=== PATIENT | female | born 1940 | race Caucasian/White ===

== ENCOUNTER 2017-03-06 10:15 | Emergency (ER) | payer MEDICARE ==
[~2017-03-06] VITALS: Ht 167.6 cm; Wt 81.6 kg
[~2017-03-06 10:15] MED LIST: ACET325T53 PO; ACLI400A2 IH; ALBU8.5H8 IH; AMOX-430 PO; DIAZ5TAB PO; DILT60TA35 PO; DOCU100T2 PO; ESCI10TA PO; FLUT1DIS27 IH; FOLI1TAB16 PO; FURO-152 PO; GABA-534 PO; METF-495 PO; METH4TAB3 PO; MONT10TA22 PO; PANT40TA2 PO; QUET400T PO
[2017-03-06] MEDS ORDERED: POLY17PO4 PO (11:14)
[2017-03-06] MEDS ORDERED: TRIA15CR2 TP (11:14)
[2017-03-06] MEDS ORDERED: CLON1TAB4 PO (11:14)
[2017-03-06] MEDS ORDERED: GUAI240S8 PO (11:14)
[2017-03-06] MEDS ORDERED: TRAZ-144 PO (11:14)
[2017-03-06] MEDS ORDERED: MULT-67 PO (11:14)
[2017-03-06] MEDS ORDERED: CHOL200074 PO (11:14)
--- NOTE | 2017-03-06 12:30 | NUR ---
Pt resting in [facility] with no acute s/s of distress noted, disposition pending.
--- NOTE | 2017-03-06 13:30 | NUR ---
Pt ambulatory to restroom without complications, pt is anxious to go back to assisted living facility, notified.
--- NOTE | 2017-03-06 13:55 | NUR ---
Called pt's assisted living facility ( [facility] [phone] ) and gave telephone report to El. El stated their transport will pick the pt up from ER.
--- NOTE | 2017-03-06 14:05 | NUR ---
Patient discharged to home in stable conditon. Written and verbal after care instructions given. Patient verbalizes understanding of instructions. Pt was picked up by transport from assisted living facility.
== END 2017-03-06 14:09 | disposition home or self-care (01) ==
LOC: ER 10:15
DX: S70.01XA Contusion of right hip, initial encounter (principal); K21.9 Gastro-esophageal reflux disease without esophagitis; J44.9 Chronic obstructive pulmonary disease, unspecified; W06.XXXA Fall from bed, initial encounter; Y93.89 Activity, other specified; Y92.9 Unspecified place or not applicable; Y99.9 Unspecified external cause status
CPT/HCPCS: 73502; A4663

== ENCOUNTER 2017-03-23 10:52 | Emergency (ER) | payer MEDICARE ==
[~2017-03-23] VITALS: Ht 165.1 cm; Wt 86.2 kg
[~2017-03-23 10:52] MED LIST changes: -AMOX-430 PO; +CHOL200074 PO; +CLON1TAB4 PO; -FURO-152 PO; +GUAI240S8 PO; -METH4TAB3 PO; -MONT10TA22 PO; +MULT-67 PO; -PANT40TA2 PO; +POLY17PO4 PO; +TRAZ-144 PO; +TRIA15CR2 TP
--- NOTE | 2017-03-23 11:02 | NUR ---
Pt BIB daughter, reports that she brought pt from SNF, pt had 2 falls today, increasing confusion over 1 week. Pt A&Ox3/4 denies CP, SOB, dizziness, n/v, no complaints, no distress noted.
[2017-03-23] MEDS ORDERED: IBUP-1953 PO (11:49)
[2017-03-23] MEDS ORDERED: FLUT1DIS27 INH (11:49)
[2017-03-23] MEDS ORDERED: ACET650T12 PO (11:49)
[2017-03-23] MEDS ORDERED: ACLI400A2 IH (11:49)
[2017-03-23 12:55] LABS: BASOPHILS % (AUTO) 0.4 % (0.0-2.0); EOSINOPHILS # (AUTO) 0.3 K/uL (0.0-0.7); HEMOGLOBIN 13.5 G/DL (12.0-16.0); LYMPHOCYTES # (AUTO) 1.8 K/UL (0.8-4.8); LYMPHOCYTES % (AUTO) 16.5 % (20.5-51.5); MEAN CORPUSCULAR HEMOGLOBIN 30.5 UUG (27.0-31.0); MEAN CORPUSCULAR HGB CONC 32 g/dL (32.0-37.0); MEAN CORPUSCULAR VOLUME 94.9 FL (81.0-99.0); MONOCYTES # (AUTO) 0.5 K/UL (0.1-1.30); MONOCYTES % (AUTO) 4.6 % (0.0-11.0); NEUTROPHILS # (AUTO) 8.3 K/UL (1.8-8.9); NEUTROPHILS % (AUTO) 75.5 % (38.5-71.5); PLATELET COUNT (AUTO) 320 K/UL (150-450); RED BLOOD CELL COUNT(AUTO) 4.43 MIL/UL (4.2-5.4); WHITE BLOOD COUNT (AUTO) 10.9 K/UL (4.0-11.2)
[2017-03-23 12:58] LABS: *BILIRUBIN,URIN NEGATIVE (NEGATIVE); *BLOOD, URINE NEGATIVE (NEGATIVE); *CLARITY,URINE CLEAR (CLEAR); *COLOR,URINE YELLOW (YELLOW); *KETONES,URINE NEGATIVE (NEGATIVE); *PROTEIN,URINE NEGATIVE (NEGATIVE); *UROBILINOGEN,URINE 0.2 E.U./dl (NORMAL); LEUKOCYTE ESTERASE ,URINE 2+ (NEGATIVE); NITRITE, URINE POSITIVE (NEGATIVE); UGLUCOSE NEGATIVE (NEGATIVE)
[2017-03-23 13:00] LABS: CARBON DIOXIDE 24 mmol/L (21-32); CHLORIDE 102 mmol/L (98-107); CREATININE 1.1 mg/dL (0.6-1.3); GLUCOSE 85 mg/dL (74-106); POTASSIUM 4.7 mmol/L (3.5-5.1); UREA NITROGEN, BLOOD 22 mg/dL (7-18)
[2017-03-23 13:06] LABS: BACTERIA,URINE FEW /HPF (NONE SEEN); RBC,URINE 0-3 /HPF (0-3)
[2017-03-23 13:07] LABS: SQUAMOUS EPITHELIAL CELL,UR FEW /HPF (NONE SEEN)
[2017-03-23] MEDS ORDERED: NITROFURANTOIN/NITROFURAN MAC 100 MG CAPSULE PO ONE (13:30)
[2017-03-23] MEDS ORDERED: NITROFURANTOIN/NITROFURAN MAC 100 MG CAPSULE ONE (13:35)
--- NOTE | 2017-03-23 13:40 | NUR ---
Gave pt's daughter RX and d/c instructions, verbalized understanding.
[2017-04-09] MEDS ORDERED: TRIA15CR2 TP (12:26)
[2017-04-12] MEDS ORDERED: CLON0.5T4 PO (15:39)
[2017-04-12] MEDS ORDERED: METF500T4 PO (15:39)
[2017-04-12] MEDS ORDERED: DILT120C62 PO (15:39)
[2017-04-12] MEDS ORDERED: FAMO20TA8 PO (15:39)
[2017-04-12] MEDS ORDERED: BISA10SU12 RC (15:39)
[2017-04-12] MEDS ORDERED: ACET-2154 PO (15:39)
[2017-04-12] MEDS ORDERED: CLON1PAT TD (15:39)
[2017-04-12] MEDS ORDERED: ATOR10TA PO (15:39)
[2017-04-12] MEDS ORDERED: ALBU1.25 NEB (15:39)
== END 2017-03-23 13:45 | disposition home or self-care (01) ==
LOC: ER 10:52
DX: N39.0 Urinary tract infection, site not specified (principal); J44.9 Chronic obstructive pulmonary disease, unspecified; K21.9 Gastro-esophageal reflux disease without esophagitis; Z88.6 Allergy status to analgesic agent; R55 Syncope and collapse; G31.89 Other specified degenerative diseases of nervous system
CPT/HCPCS: 36415; 70450; 85025; 87086; 93005; A4663

== ENCOUNTER 2017-04-08 09:30 | Emergency (ER) | payer MEDICARE ==
[~2017-04-08] VITALS: Ht 172.7 cm; Wt 78.0 kg
[~2017-04-08 09:30] MED LIST changes: +ACET650T12 PO; -CHOL200074 PO; -FLUT1DIS27 IH; +FLUT1DIS27 INH; +IBUP-1953 PO
[2017-04-08] MEDS ORDERED: IV NORMAL SALINE 1000 ML BAG IV ONE (10:00)
[2017-04-08] MEDS ORDERED: CHOL10002 PO (10:01)
[2017-04-08] MEDS ORDERED: ACET325S18 PO (10:01)
[2017-04-08 10:09] LABS: BASOPHILS % (AUTO) 0.6 % (0.0-2.0); EOSINOPHILS # (AUTO) 0.2 K/uL (0.0-0.7); EOSINOPHILS % (AUTO) 2.1 % (0.0-7.0); HEMATOCRIT 38.7 % (37-47); HEMOGLOBIN 12.6 G/DL (12.0-16.0); LYMPHOCYTES # (AUTO) 1.9 K/UL (0.8-4.8); MEAN CORPUSCULAR HGB CONC 33 g/dL (32.0-37.0); MEAN CORPUSCULAR VOLUME 95.5 FL (81.0-99.0); MONOCYTES # (AUTO) 0.5 K/UL (0.1-1.30); MONOCYTES % (AUTO) 6.8 % (0.0-11.0); NEUTROPHILS % (AUTO) 65.5 % (38.5-71.5); PLATELET COUNT (AUTO) 340 K/UL (150-450); RED BLOOD CELL COUNT(AUTO) 4.05 MIL/UL (4.2-5.4); WHITE BLOOD COUNT (AUTO) 7.6 K/UL (4.0-11.2)
[2017-04-08 10:20] LABS: CARBON DIOXIDE 28 mmol/L (21-32); CHLORIDE 101 mmol/L (98-107); CREATININE 0.7 mg/dL (0.6-1.3); GLUCOSE 94 mg/dL (74-106); POTASSIUM 4.1 mmol/L (3.5-5.1); UREA NITROGEN, BLOOD 19 mg/dL (7-18)
[2017-04-08 10:26] LABS: ALANINE AMINOTRANSFERASE 18 U/L (14-59); ALKALINE PHOSPHATASE 120 U/L (50-136); ASPARTATE AMINOTRANSFERASE 11 U/L (15-37); BILIRUBIN,DIRECT 0.1 mg/dL (0.0-0.2); BILIRUBIN,TOTAL 0.4 mg/dL (0.2-1.0); LIPASE 101 U/L (73-393); TOTAL PROTEIN, SERUM 7.7 g/dL (6.4-8.2)
[2017-04-08 11:11] LABS: *BILIRUBIN,URIN NEGATIVE (NEGATIVE); *BLOOD, URINE NEGATIVE (NEGATIVE); *CLARITY,URINE SLIGHTLY CLOUDY (CLEAR); *COLOR,URINE YELLOW (YELLOW); *KETONES,URINE TRACE (NEGATIVE); *PROTEIN,URINE NEGATIVE (NEGATIVE); *UROBILINOGEN,URINE 0.2 E.U./dl (NORMAL); LEUKOCYTE ESTERASE ,URINE TRACE (NEGATIVE); NITRITE, URINE NEGATIVE (NEGATIVE); PH,URINE 7.5 (5.0-8.0); UGLUCOSE NEGATIVE (NEGATIVE)
[2017-04-08 11:34] LABS: BACTERIA,URINE FEW /HPF (NONE SEEN); RBC,URINE 0-3 /HPF (0-3); SQUAMOUS EPITHELIAL CELL,UR MODERATE /HPF (NONE SEEN)
--- NOTE | 2017-04-08 11:35 | NUR ---
called alvaro perrin for er to talk to the nurse caring for the pt.
--- NOTE | 2017-04-08 12:27 | NUR ---
anne marie whipple at [facility] for psycheval.
--- NOTE | 2017-04-08 13:50 | NUR ---
pt medically cleared. no room available per mhu at thispoint, supervisor water treatment plant notified
--- NOTE | 2017-04-08 14:20 | NUR ---
hospital sandwich provided. pt eating with good appetite.
--- NOTE | 2017-04-08 15:22 | NUR ---
pt rachele, helped her walking in the room.
--- NOTE | 2017-04-08 15:45 | NUR ---
sitter at bedside.
--- NOTE | 2017-04-08 17:20 | NUR ---
provided pt with hospital tray. pt eating with good appetite.
--- NOTE | 2017-04-08 18:28 | NUR ---
pt transfered to floor in stable condition
[2017-04-08 18:39] VITALS: BP 161/86
--- NOTE | 2017-04-08 18:47 | NUR ---
PT IN ROOM WITH 1:! SITTER, VS STABLE. PT ALERT TO SELF, WANTS TO LEAVE TO GO HOME. ALL SAFETY MEASURES ATTENDED TO. WILL ENDORSE TO SAFETY COORDINATOR
--- NOTE | 2017-04-08 19:40 | NUR ---
PT RECEIVED IN [facility] CHAIR, AWAKE. 1:1 SITTER AT BEDSIDE FOR SAFETY. A/OX1. V/S STABLE. IN NO ACUTE DISTRESS. NO C/O PAIN AT THIS TIME. SAFETY MEASURES IMPLEMENTED. CALL LIGHT WITHIN REACH.
[2017-04-08] MEDS ORDERED: MAG HYDROX/AL HYDROX/SIMETH 30 ML LIQUID UDC PO PRN (20:30)
[2017-04-08] MEDS ORDERED: ACETAMINOPHEN 325 MG TABLET PO PRN (20:30)
[2017-04-08] MEDS ORDERED: LORAZEPAM 0.5 MG TABLET PO PRN (20:30)
[2017-04-08] MEDS ORDERED: MAGNESIUM HYDROXIDE 30 ML LIQUID UDC PO PRN (20:30)
[2017-04-08] MEDS ORDERED: TEMAZEPAM 7.5 MG CAPSULE PO PRN (20:30)
[2017-04-08 20:33] VITALS: BP 151/82
[2017-04-09 02:15] VITALS: BP 157/102
[2017-04-09] MEDS: ONDANSETRON 4 MG/2 ML VIAL IV PRN ×2 (02:48→11:24)
[2017-04-09] MEDS ORDERED: ONDANSETRON 4 MG/2 ML VIAL ONE ×2 (03:01→06:12)
--- NOTE | 2017-04-09 05:55 | NUR ---
PT HAS X2 EPISODES OF PROJECTILE VOMITING. NOTIFIED MAKE READY WORKER EDNA. WILL ADMIN ZOFRAN 8MG ORDERED. ABD KUB ORDERED. WILL CONT TO MONITOR.
[2017-04-09] MEDS ORDERED: ONDANSETRON INJ 8 MG in IV NORMAL SALINE 50 ML IV ONE (06:00)
--- NOTE | 2017-04-09 06:30 | NUR ---
END OF SHIFT NOTES. PT SLEPT FOR 4.5 HOURS THRU THE NIGHT. PT IN STABLE CONDITION. EMESIS CEASED. KUB OF ABDOMEN COMPLETE. IV REMAINS INTACT/PATENT. SITTER REMAINS AT BEDSIDE FOR SAFETY. ALL NEEDS ATTENDED. CALL LIGHT WITHIN REACH.
--- NOTE | 2017-04-09 08:00 | NUR ---
Awaiting KUB results. Called radiology for f/u result or any preliminary. KEpt pt NPO until result of KUB. Pt has Flat affect. 1:1 sitter at bedside for safety. Facial redness noted with swollen red bumps on her face. No red bumps noted on body. Noted scabs on left leg. Will notify Medical doctor for any further orders. Aspiration precaution implemented. Call light is within reach.
[2017-04-09 08:11] VITALS: BP 142/76
--- NOTE | 2017-04-09 10:30 | NUR ---
Spoke with Dr oliver re: pt's red bumps on face and pt had x 1 greenish liquid vomited with abdominal distention. Zofran given as ordered for prn nausea vomiting. Abd hyperactive. KUB results shows constipation will attempt to give suppository in addition to new orders for pt's hives on face. Call light is within reach.
[2017-04-09] MEDS ORDERED: HYDROCORTISONE SOD SUCCINATE 100 MG/2 ML VIAL IV SCH (11:00)
[2017-04-09] MEDS ORDERED: DILTIAZEM HCL 60 MG TABLET PO ONE (11:11)
[2017-04-09 11:15] VITALS: BP 140/76
[2017-04-09] MEDS ORDERED: MIRALAX 17 GM POWD.PACK PO PRN (11:15)
[2017-04-09] MEDS ORDERED: GUAIFENESIN PO SCH (11:15)
[2017-04-09] MEDS ORDERED: DEXTROMETHORPHAN PO SCH (11:15)
[2017-04-09] MEDS ORDERED: FLUTICASONE/SALMETEROL 100/50 1 INH DISK.W.DEV INH SCH (11:15)
[2017-04-09] MEDS ORDERED: DEXTROSE 50% 50 ML DISP.SYRIN IV PRN (11:15)
[2017-04-09] MEDS ORDERED: TRIAMCINOLONE ACET 0.5% CREAM 15 GM TUBE TP PRN ×2 (11:15→12:30)
[2017-04-09] MEDS: diphenhydrAMINE 50 MG/1 ML VIAL IV PRN ×2 (11:24→20:36)
[2017-04-09] MEDS: methylPREDNISolone SOD SUCC 40 MG/ML VIAL IV SCH ×2 (11:24→20:35)
[2017-04-09 12:07] LABS: BASOPHILS # (AUTO) 0.1 K/uL (0.0-8.0); BASOPHILS % (AUTO) 0.4 % (0.0-2.0); HEMATOCRIT 42.2 % (37-47); HEMOGLOBIN 13.7 G/DL (12.0-16.0); LYMPHOCYTES # (AUTO) 0.7 K/UL (0.8-4.8); LYMPHOCYTES % (AUTO) 4.8 % (20.5-51.5); MEAN CORPUSCULAR HEMOGLOBIN 31.4 UUG (27.0-31.0); MEAN CORPUSCULAR HGB CONC 33 g/dL (32.0-37.0); MEAN CORPUSCULAR VOLUME 96.3 FL (81.0-99.0); MONOCYTES # (AUTO) 0.4 K/UL (0.1-1.30); MONOCYTES % (AUTO) 2.7 % (0.0-11.0); NEUTROPHILS # (AUTO) 14.2 K/UL (1.8-8.9); NEUTROPHILS % (AUTO) 92.1 % (38.5-71.5); PLATELET COUNT (AUTO) 378 K/UL (150-450); RED BLOOD CELL COUNT(AUTO) 4.38 MIL/UL (4.2-5.4); WHITE BLOOD COUNT (AUTO) 15.4 K/UL (4.0-11.2)
[2017-04-09 12:11] LABS: ALANINE AMINOTRANSFERASE 19 U/L (14-59); ALKALINE PHOSPHATASE 119 U/L (50-136); ASPARTATE AMINOTRANSFERASE 12 U/L (15-37); BILIRUBIN,TOTAL 0.5 mg/dL (0.2-1.0); CARBON DIOXIDE 28 mmol/L (21-32); CHLORIDE 98 mmol/L (98-107); CREATININE 0.8 mg/dL (0.6-1.3); GLUCOSE 132 mg/dL (74-106); MAGNESIUM 1.6 mg/dL (1.8-2.4); PHOSPHOROUS 3.4 mg/dL (2.5-4.9); POTASSIUM 3.9 mmol/L (3.5-5.1); TOTAL PROTEIN, SERUM 7.8 g/dL (6.4-8.2); UREA NITROGEN, BLOOD 22 mg/dL (7-18)
[2017-04-09] MEDS ORDERED: DILTIAZEM HCL 60 MG TABLET PO SCH (12:21)
[2017-04-09] MEDS ORDERED: TRIA15CR2 TP (12:26)
[2017-04-09] MEDS ORDERED: GUAIFENESIN/DEXTROMETHORPHAN 5 ML UDC PO PRN (12:30)
[2017-04-09] MEDS: BLOOD SUGAR DIAGNOSTIC 1 EACH STRIP VI SCH ×3 (12:33→20:39)
[2017-04-09] MEDS: METFORMIN HCL 500 MG TABLET PO SCH ×2 (12:37→17:25)
[2017-04-09] MEDS: INSULIN REGULAR, HUMAN 300 UNIT/3 ML VIAL SQ PRN ×3 (12:39→20:41)
[2017-04-09] MEDS: FAMOTIDINE. 20 MG/2 ML VIAL IV SCH ×2 (12:40→20:35)
[2017-04-09] MEDS ORDERED: TRIAMCINOLONE ACET 0.1% CREAM 15 GM TUBE TOP PRN (12:45)
[2017-04-09] MEDS ORDERED: FLUTICASONE/VILANTEROL 1 EACH BLST.W.DEV INH SCH (13:00)
[2017-04-09] MEDS ORDERED: BISACODYL 10 MG SUPP.RECT RC ONE (14:30)
[2017-04-09 15:32] VITALS: BP 168/94
[2017-04-09] MEDS ORDERED: FLEET ENEMA 133 ML BOTTLE RC PRN (16:45)
[2017-04-09] MEDS ORDERED: Medication Not On Formulary EA (Docusate Sodium 100 MG) PO SCH (17:00)
[2017-04-09] MEDS: GABAPENTIN 300 MG CAPSULE PO SCH ×2 (17:00→18:20)
--- NOTE | 2017-04-09 17:30 | NUR ---
While changing pt's soiled diaper pt had another vomiting episodes. No result from suppository. Dr oliver notified of vomiting and no result from suppository. Ordered NGT to be placed and put on to [facility].
--- NOTE | 2017-04-09 18:00 | NUR ---
NGT inserted marked AT 55marking on ngt. Audible on stomach -checked with another RN. Awaiting placement from radiology.
[2017-04-09 18:34] VITALS: BP 158/91
--- NOTE | 2017-04-09 18:36 | NUR ---
ABHIJEET TAKEN OUT OF PYXSIS BY BLAST FURNACE SUPERVISOR.
--- NOTE | 2017-04-09 18:45 | NUR ---
NGT has 300cc out from Low continous suction. Pt states that she feels better. Draining yellowish brown fluid. Call light is within reach. Charge nurse spoke with Dr Peter psychiatrist OK to transfer to MEdical surgical floor.
[2017-04-09 19:00] VITALS: BP 149/96
--- NOTE | 2017-04-09 19:40 | NUR ---
PT RECEIVED IN BED, AWAKE. A/OX1. 1:1 SITTER AT BEDSIDE FOR SAFETY. V/S STABLE. IN NO ACUTE DISTRESS. NO S/S OF PAIN AT THIS TIME. IV INTACT AND PATENT. PT ON CONT NG TUBE SUCTION WITH 300 CC OUT. NO EPISODES OF EMESIS AT THIS TIME. UNABLE TO TRANSFER PT TO MED SURG. MHU STATES THAT D/C PROCESS SHOULD BE ENDORSED TO DAYSHIFT NURSE. SAFETY MEASURES IMPLEMENTED. CALL LIGHT WITHIN REACH.
[2017-04-09] MEDS ORDERED: DOCUSATE SODIUM 100 MG CAPSULE PO SCH (21:00)
[2017-04-09] MEDS ORDERED: QUETIAPINE FUMARATE 25 MG TABLET PO SCH (21:00)
[2017-04-09] MEDS ORDERED: FAMOTIDINE. 20 MG/2 ML VIAL IV SCH (21:00)
[2017-04-09] MEDS ORDERED: MAGN400O6 PO (21:39)
[2017-04-09] MEDS ORDERED: FAMO20VI10 IV (21:39)
[2017-04-09] MEDS ORDERED: NA P133E RC (21:39)
[2017-04-09] MEDS ORDERED: TEMA7.5C2 PO (21:39)
[2017-04-09] MEDS ORDERED: METH40VI37 IV (21:39)
[2017-04-09] MEDS ORDERED: ONDA4VIA30 IV (21:39)
[2017-04-09] MEDS ORDERED: FLUT1BLS IH (21:39)
[2017-04-09] MEDS ORDERED: DIPH50DI IV (21:39)
[2017-04-09] MEDS ORDERED: CLON0.5T PO (21:39)
[2017-04-09] MEDS ORDERED: QUET50TA PO (21:39)
[2017-04-09] MEDS ORDERED: DEXT50VI3 IV (21:39)
[2017-04-09] MEDS ORDERED: ESCI10TA PO (21:39)
[2017-04-09] MEDS ORDERED: BLOO-140 IN (21:39)
[2017-04-10] MEDS ORDERED: FOLIC ACID 1 MG TABLET PO SCH (09:00)
[2017-04-10] MEDS ORDERED: Medication Not On Formulary EA (Multivitamins 1 EACH) PO SCH (09:00)
[2017-04-10] MEDS ORDERED: CLONAZEPAM 0.5 MG TABLET PO SCH (09:00)
[2017-04-10] MEDS ORDERED: MULTIVITAMINS,THERAPEUTIC TABLET PO SCH (09:00)
[2017-04-10] MEDS ORDERED: ESCITALOPRAM OXALATE 10 MG TABLET PO SCH (09:00)
[2017-04-10] MEDS ORDERED: CHOLECALCIFEROL 1,000 UNIT TABLET PO SCH (09:00)
[2017-04-12] MEDS ORDERED: DILT120C62 PO (15:39)
[2017-04-12] MEDS ORDERED: CLON0.5T4 PO (15:39)
[2017-04-12] MEDS ORDERED: CLON1PAT TD (15:39)
[2017-04-12] MEDS ORDERED: ACET-2154 PO (15:39)
[2017-04-12] MEDS ORDERED: ALBU1.25 NEB (15:39)
[2017-04-12] MEDS ORDERED: METF500T4 PO (15:39)
[2017-04-12] MEDS ORDERED: BISA10SU12 RC (15:39)
[2017-04-12] MEDS ORDERED: ATOR10TA PO (15:39)
[2017-04-12] MEDS ORDERED: FAMO20TA8 PO (15:39)
== END 2017-04-08 18:32 | disposition other institution (70) ==
LOC: ER 09:30 → GPS 17:28 → UNDOADMIN 17:28 → GPSOV 18:11 → UNDOADMIN 18:11 → UNDODISIN 04-09 21:09
DX: Z02.79 Encounter for issue of other medical certificate (principal); F03.90 Unspecified dementia, unspecified severity, without behavioral disturbance, psychotic disturbance, mood disturbance, and anxiety; J44.9 Chronic obstructive pulmonary disease, unspecified; K21.9 Gastro-esophageal reflux disease without esophagitis; F29 Unspecified psychosis not due to a substance or known physiological condition; I48.91 Unspecified atrial fibrillation; Z88.8 Allergy status to other drugs, medicaments and biological substances
CPT/HCPCS: 36415; 70030-TC; 70450; 71010; 71250; 74000; 83690; 83735; 84100; 85025; 85730; 93005; A4663; C1758; J1200; J1815; J2405; J2920; J3490; J7030

== ENCOUNTER 2017-04-09 21:18 | Inpatient (IN) | payer MEDICARE ==
[~2017-04-09] VITALS: Ht 172.7 cm; Wt 78.0 kg
--- NOTE | 2017-04-09 21:15 | NUR ---
PT IS SINUS TACHY AT 115 ON THE TELE MONITOR.
--- NOTE | 2017-04-09 21:15 | NUR ---
PT TRANSFERRED FROM [facility] TO TELEMETRY WITH UNSTABLE CONDITION. PT A/OX1. FLAT AFFECT. VS STABLE. NO S/S OF PAIN. IV INTACT/PATENT. IVF INFUSING. NG TUBE ON CONTINUOUS SUCTION, 400CC OUT, DARK BROWN/GREEN AND THICK IN CONSISTENCY. HOB ELEVATED. 1:1 SITTER AT BEDSIDE FOR SAFETY. SAFETY MEASURES IMPLEMENTED. CALL LIGHT WITHIN REACH.
[~2017-04-09 21:18] MED LIST changes: +ACET325S18 PO; -ACET325T53 PO; -ACET650T12 PO; +CHOL10002 PO
[2017-04-09] MEDS ORDERED: VANCOMYCIN IV 1 G in PREMIXED 0 EACH IV ONE (21:30)
[2017-04-09] MEDS ORDERED: BLOO-140 IN (21:39)
[2017-04-09] MEDS ORDERED: TEMA7.5C2 PO (21:39)
[2017-04-09] MEDS ORDERED: DEXT50VI3 IV (21:39)
[2017-04-09] MEDS ORDERED: CLON0.5T PO (21:39)
[2017-04-09] MEDS ORDERED: QUET50TA PO (21:39)
[2017-04-09] MEDS ORDERED: FLUT1BLS IH (21:39)
[2017-04-09] MEDS ORDERED: METH40VI37 IV (21:39)
[2017-04-09] MEDS ORDERED: ESCI10TA PO (21:39)
[2017-04-09] MEDS ORDERED: FAMO20VI10 IV (21:39)
[2017-04-09] MEDS ORDERED: MAGN400O6 PO (21:39)
[2017-04-09] MEDS ORDERED: DIPH50DI IV (21:39)
[2017-04-09] MEDS ORDERED: ONDA4VIA30 IV (21:39)
[2017-04-09] MEDS ORDERED: NA P133E RC (21:39)
[2017-04-09] MEDS ORDERED: VANCOMYCIN 1000 MG VIAL ONE (22:02)
[2017-04-09] MEDS ORDERED: PIPERACILLIN SODIUM/TAZO 3.375 GM VIAL ONE (22:03)
[2017-04-09] MEDS ORDERED: LEVALBUTEROL HCL NEB 0.63 MG/3 ML NEBU NEB PRN (22:15)
[2017-04-09] MEDS ORDERED: ONDANSETRON 4 MG/2 ML VIAL IV PRN (22:15)
[2017-04-09] MEDS ORDERED: MORPHINE SULFATE 2 MG/1 ML DISP.SYRIN IV PRN (22:15)
[2017-04-09] MEDS ORDERED: ACETAMINOPHEN 650 MG SUPP.RECT RC PRN (22:15)
[2017-04-09] MEDS ORDERED: DEXTROSE 50% 50 ML DISP.SYRIN IV PRN (22:15)
[2017-04-09] MEDS: PIPERACILLIN/TAZOBACTAM/D5W 3.375 G in PREMIXED 1 EACH IV SCH (22:34)
[2017-04-09] MEDS: BLOOD SUGAR DIAGNOSTIC 1 EACH STRIP VI SCH (23:06)
[2017-04-09] MEDS: INSULIN REGULAR, HUMAN 300 UNIT/3 ML VIAL SQ PRN (23:09)
[2017-04-09] MEDS: IV D5 1/2 NS 1000 ML 1,000 ML IV PRN (23:22)
[2017-04-10] VITALS (8 sets, daily range): BP systolic 126–163; BP diastolic 60–95
--- NOTE | 2017-04-10 00:50 | NUR ---
ADMINISTERED PAIN MEDICATION TO PT. PT UNABLE TO VERBALIZE PAIN SCALE, BUT CONTINUES TO STATE SHE IS PAIN. YELLS "OUCH" AND SCREAMS WITH ALL NURSING CARE. WILL CONT TO MONITOR
[2017-04-10] MEDS ORDERED: MORPHINE SULFATE 4 MG/1 ML DISP.SYRIN ONE (00:56)
--- NOTE | 2017-04-10 03:00 | NUR ---
PT PULLED PU NG TUBE. NEW NG TUBE PLACED. ABDOMINAL XRAY DONE. IN STABLE CONDITION. WILL CONT TO MONITOR
[2017-04-10] MEDS: PIPERACILLIN/TAZOBACTAM/D5W 3.375 G in PREMIXED 1 EACH IV SCH ×3 (05:35→21:03)
[2017-04-10] MEDS: BLOOD SUGAR DIAGNOSTIC 1 EACH STRIP VI SCH ×4 (05:40→23:23)
[2017-04-10] MEDS: INSULIN REGULAR, HUMAN 300 UNIT/3 ML VIAL SQ PRN ×2 (05:43→08:24)
[2017-04-10 05:56] LABS: BASOPHILS # (AUTO) 0.1 K/uL (0.0-8.0); BASOPHILS % (AUTO) 0.6 % (0.0-2.0); HEMATOCRIT 38.5 % (37-47); HEMOGLOBIN 12.9 G/DL (12.0-16.0); LYMPHOCYTES % (AUTO) 9.3 % (20.5-51.5); MEAN CORPUSCULAR HEMOGLOBIN 31.6 UUG (27.0-31.0); MEAN CORPUSCULAR HGB CONC 33 g/dL (32.0-37.0); MEAN CORPUSCULAR VOLUME 94.8 FL (81.0-99.0); MONOCYTES # (AUTO) 0.9 K/UL (0.1-1.30); MONOCYTES % (AUTO) 8.1 % (0.0-11.0); NEUTROPHILS # (AUTO) 8.9 K/UL (1.8-8.9); PLATELET COUNT (AUTO) 369 K/UL (150-450); RED BLOOD CELL COUNT(AUTO) 4.06 MIL/UL (4.2-5.4); WHITE BLOOD COUNT (AUTO) 10.9 K/UL (4.0-11.2)
--- NOTE | 2017-04-10 06:10 | NUR ---
END OF SHIFT NOTES. PT SLEPT INTERMITTENTLY THROUGHOUT SHIFT. 1;1 SITTER AT BEDSIDE FOR SAFETY. IV ABX INFUSED. IVF INFUSING. NG TUBE ON CONTINUOUS SUCTION, 100 CC OUT. MARKED AT 55IN. HOB ELEVATED. CONT TO TO BE NPO. SAFETY MAINTAINED. CALL LIGHT WITHIN REACH.
[2017-04-10 06:19] LABS: THYROID STIMULATING HORMONE 2.874 mIU/mL (0.358-3.740)
[2017-04-10 06:20] LABS: ALANINE AMINOTRANSFERASE 17 U/L (14-59); ALKALINE PHOSPHATASE 111 U/L (50-136); ASPARTATE AMINOTRANSFERASE 11 U/L (15-37); BILIRUBIN,TOTAL 0.4 mg/dL (0.2-1.0); CARBON DIOXIDE 31 mmol/L (21-32); CHLORIDE 104 mmol/L (98-107); CHOLESTEROL 213 mg/dL (<200); CREATININE 0.9 mg/dL (0.6-1.3); GLUCOSE 155 mg/dL (74-106); HDL CHOLESTEROL 92 mg/dL (40-60); LIPASE 67 U/L (73-393); MAGNESIUM 1.5 mg/dL (1.8-2.4); PHOSPHOROUS 3.7 mg/dL (2.5-4.9); POTASSIUM 3.9 mmol/L (3.5-5.1); TOTAL PROTEIN, SERUM 7.5 g/dL (6.4-8.2); TRIGLYCERIDES 59 MG/DL (30-150); UREA NITROGEN, BLOOD 27 mg/dL (7-18)
[2017-04-10] MEDS ORDERED: MORPHINE SULFATE 4 MG/1 ML DISP.SYRIN IV PRN (08:15)
[2017-04-10] MEDS: FAMOTIDINE. 20 MG/2 ML VIAL IV SCH ×2 (08:23→21:03)
--- NOTE | 2017-04-10 08:30 | NUR ---
PT WAS SOB ON BEDSIDE SHIFT ROUNDING, SAT 80-81%. 2L NC APPLIED, NOW SATING 93%. IN NO ACUTE DISTRESS, KUB SHOWED NG TUBE IN STOMACH, AUSCULTATED PLACEMENT, SUCTION ON LOW INTERMITTEN, DENIES PAIN AND NAUSEA, 1:1 SITTER AT BEDSIDE, WILL CONTINUE TO MONITOR.
--- NOTE | 2017-04-10 12:23 | NUR ---
Clinical pharmacy note-Vancomycin dosing per pharmacy Subjective: To start Vancomycin dosing on this patient for suspected aspiration pneumonia with early sepsis. Objective: BUN 27 Scr 0.9 WBC 10.9 Temp 98.1 Ht 5'8" Wt 172 lbs Assessment/Plan: Patient had Vancomycin 1 gram last night at 2310. Will continue Vancomycin 1250mg IV every 21 hrs(first dose tonight at 1700) and draw trough by 4th dose(not ordered yet) for expected trough around 15. Will monitor renal function closely to adjust the dose if needed. Will follow daily.
[2017-04-10] MEDS: MAGNESIUM SULFATE/D5W 100 ML IV SCH ×2 (14:59→16:05)
--- NOTE | 2017-04-10 16:42 | NUR ---
Patient is previously from [facility]. Called facility and patient will be accepted back there. Family states that patient gets $13,000 in [facility]. Jovany Garcia is the patients DPOA. Waiting for son to fax over the necessary paperwork.
[2017-04-10] MEDS ORDERED: BISACODYL 10 MG SUPP.RECT RC PRN (16:45)
--- NOTE | 2017-04-10 16:53 | NUR ---
SUPP GIVEN ORDERED
[2017-04-10] MEDS: VANCOMYCIN IV 1,250 MG in IV DEXTROSE 5% 500 ML IV SCH (17:38)
[2017-04-10] MEDS ORDERED: CLONIDINE-TTS 1 PATCH TD SCH (18:00)
--- NOTE | 2017-04-10 19:40 | NUR ---
PT RECEIVED IN BED, ASLEEP. WAKES WHEN CALLED BY NAME. FLAT AFFECT. A/OX1. 1:1 SITTER AT BEDSIDE FOR SAFETY. V/S STABLE. IN NO ACUTE DISTRESS. PT HAS SOME FACIAL GRIMACING AND GROANING, WITH SLIGHTLY ELEVATED HR 98. WILL ADMIN PAIN MEDICATION ORDERED. IVF INFUSING. NG TUBE ON INTERMITTENT SUCTION. SAFETY MEASURES IMPLEMENTED. CALL LIGHT WITHIN REACH .
[2017-04-10] MEDS: IV D5 1/2 NS 1000 ML 1,000 ML IV PRN (22:42)
[2017-04-11 04:01] VITALS: BP 133/82
[2017-04-11] MEDS: PIPERACILLIN/TAZOBACTAM/D5W 3.375 G in PREMIXED 1 EACH IV SCH ×3 (05:41→21:05)
[2017-04-11] MEDS: BLOOD SUGAR DIAGNOSTIC 1 EACH STRIP VI SCH ×3 (05:46→18:27)
--- NOTE | 2017-04-11 06:50 | NUR ---
END OF SHIFT NOTES. PT SLEPT WELL THROUGHOUT SHIFT. 1:1 SITTER REMAINS AT BEDSIDE FOR SAFETY. IV ABX INFUSED. IVF INFUSING. NG TUBE ON INTERMITTENT SUCTION, 100CC OUT. ALL NEEDS ATTENDED. SAFETY MAINTAINED. CALL LIGHT WITHIN REACH.
[2017-04-11] MEDS: FAMOTIDINE. 20 MG/2 ML VIAL IV SCH ×2 (08:13→21:04)
[2017-04-11 09:32] LABS: ALANINE AMINOTRANSFERASE 15 U/L (14-59); ALKALINE PHOSPHATASE 102 U/L (50-136); ASPARTATE AMINOTRANSFERASE 13 U/L (15-37); BILIRUBIN,TOTAL 0.4 mg/dL (0.2-1.0); CARBON DIOXIDE 30 mmol/L (21-32); CHLORIDE 102 mmol/L (98-107); CREATININE 0.7 mg/dL (0.6-1.3); GLUCOSE 136 mg/dL (74-106); MAGNESIUM 1.9 mg/dL (1.8-2.4); PHOSPHOROUS 2.5 mg/dL (2.5-4.9); POTASSIUM 3.5 mmol/L (3.5-5.1); TOTAL PROTEIN, SERUM 7.2 g/dL (6.4-8.2); UREA NITROGEN, BLOOD 18 mg/dL (7-18)
[2017-04-11 09:39] LABS: BASOPHILS # (AUTO) 0.1 K/uL (0.0-8.0); BASOPHILS % (AUTO) 0.6 % (0.0-2.0); EOSINOPHILS # (AUTO) 0.1 K/uL (0.0-0.7); EOSINOPHILS % (AUTO) 0.7 % (0.0-7.0); HEMATOCRIT 36.4 % (37-47); HEMOGLOBIN 12.8 G/DL (12.0-16.0); LYMPHOCYTES # (AUTO) 1.2 K/UL (0.8-4.8); LYMPHOCYTES % (AUTO) 9.9 % (20.5-51.5); MEAN CORPUSCULAR HEMOGLOBIN 34.3 UUG (27.0-31.0); MEAN CORPUSCULAR HGB CONC 35 g/dL (32.0-37.0); MEAN CORPUSCULAR VOLUME 97.4 FL (81.0-99.0); MONOCYTES # (AUTO) 0.9 K/UL (0.1-1.30); MONOCYTES % (AUTO) 7.9 % (0.0-11.0); NEUTROPHILS # (AUTO) 9.6 K/UL (1.8-8.9); NEUTROPHILS % (AUTO) 80.9 % (38.5-71.5); PLATELET COUNT (AUTO) 322 K/UL (150-450); RED BLOOD CELL COUNT(AUTO) 3.73 MIL/UL (4.2-5.4); WHITE BLOOD COUNT (AUTO) 11.9 K/UL (4.0-11.2)
--- NOTE | 2017-04-11 11:07 | NUR ---
Clinical pharmacy note-Vancomycin dosing per pharmacy Subjective: To continue Vancomycin dosing on this patient for suspected aspiration pneumonia with early sepsis. Objective: BUN 27 (04/10) Scr 0.9 (04/10) WBC 10.9 (04/10) Temp 97.6 Ht 5'8" Wt 172 lbs Assessment/Plan: Will continue Vancomycin 1250mg IV every 21 hrs, second dose due today at 1400, and draw trough by 4th dose(not ordered yet) for expected trough around 15. Will monitor renal function closely to adjust the dose if needed. Will follow daily.
[2017-04-11 11:41] VITALS: BP 161/82
--- NOTE | 2017-04-11 12:14 | NUR ---
manually disimpacted as ordered, no stool in rectum. ng tube removed as ordered, pt tolerated well. pt on RA sat 91% started on clear liquids, will cont to monitor closely
[2017-04-11] MEDS ORDERED: ALBUTEROL SULFATE 1.25 MG/3 ML NEBU NEB PRN (14:45)
[2017-04-11 15:14] VITALS: BP 158/88
[2017-04-11] MEDS ORDERED: HYDROMORPHONE 1 MG/1 ML DISP.SYRIN IV PRN (15:15)
[2017-04-11] MEDS: VANCOMYCIN IV 1,250 MG in IV DEXTROSE 5% 500 ML IV SCH (15:20)
[2017-04-11] MEDS: INSULIN REGULAR, HUMAN 300 UNIT/3 ML VIAL SQ PRN (18:30)
--- NOTE | 2017-04-11 18:45 | NUR ---
PT PULLED OUT IV, ERIN CHARGE NURSE STARTED NEW IV IN LFA G22. PT TOLERATING SOFT DIET, NO VOMITING OR NAUSEA PRESENT. 1:1 SITTER MAINTAINED THROUGHOUT SHIFT, ALL SAFETY AND COMFORT MEASURES MAINTAINED, CALL LIGHT IN REACH.
[2017-04-11] MEDS ORDERED: CLONAZEPAM 0.5 MG TABLET PO PRN (20:30)
[2017-04-11] MEDS ORDERED: ATORVASTATIN 10 MG TABLET PO SCH (21:00)
[2017-04-11] MEDS: QUETIAPINE FUMARATE 25 MG TABLET PO SCH (21:04)
[2017-04-11] MEDS: IV D5 1/2 NS 1000 ML 1,000 ML IV PRN (21:54)
--- NOTE | 2017-04-11 23:18 | NUR ---
PATIENT AWAKE AND ALERT BUT CONFUSE NOT SAYING ANY WORD, FLAT AFFECT BUT NON COMBATIVE WITH AGITATION AT TIMES. SEEN BY DR DUTCH DAHL WITH ORDERS. PSYCH MEDS RESTARTED. PLACED ON 5249 14- DAY HOLD VALID UNTIL 04/25/17 FOR GRAVE DISABILITY, FAXED COPY TO MHU. 1:1 SITTER AT BEDSIDE. OTHERWISE VSS.
[2017-04-12] MEDS: BLOOD SUGAR DIAGNOSTIC 1 EACH STRIP VI SCH ×5 (01:36→16:18)
[2017-04-12] MEDS: PIPERACILLIN/TAZOBACTAM/D5W 3.375 G in PREMIXED 1 EACH IV SCH ×2 (05:36→14:21)
--- NOTE | 2017-04-12 06:30 | NUR ---
SLEPT GOOD THRU THE NIGHT. NO RESPIRATORY DISTRESS NOTED. INCONTINENT CARE RENDERED. KEPT SAFE WITH 1:1 SITTER FOR SAFETY AND GRAVE DISABILITY.
[2017-04-12] MEDS ORDERED: INSULIN REGULAR, HUMAN 300 UNIT/3 ML VIAL SQ PRN (06:45)
[2017-04-12] MEDS ORDERED: DEXTROSE 50% 50 ML DISP.SYRIN IV PRN (06:45)
[2017-04-12 07:42] LABS: CARBON DIOXIDE 28 mmol/L (21-32); CHLORIDE 103 mmol/L (98-107); CREATININE 0.7 mg/dL (0.6-1.3); GLUCOSE 114 mg/dL (74-106); MAGNESIUM 1.9 mg/dL (1.8-2.4); PHOSPHOROUS 2.3 mg/dL (2.5-4.9); POTASSIUM 3.2 mmol/L (3.5-5.1); UREA NITROGEN, BLOOD 13 mg/dL (7-18)
[2017-04-12 07:50] LABS: BASOPHILS % (AUTO) 0.2 % (0.0-2.0); EOSINOPHILS # (AUTO) 0.2 K/uL (0.0-0.7); EOSINOPHILS % (AUTO) 1.8 % (0.0-7.0); HEMATOCRIT 36.4 % (37-47); HEMOGLOBIN 12.8 G/DL (12.0-16.0); LYMPHOCYTES # (AUTO) 1.7 K/UL (0.8-4.8); LYMPHOCYTES % (AUTO) 19.4 % (20.5-51.5); MEAN CORPUSCULAR HEMOGLOBIN 34.4 UUG (27.0-31.0); MEAN CORPUSCULAR HGB CONC 35 g/dL (32.0-37.0); MEAN CORPUSCULAR VOLUME 98.2 FL (81.0-99.0); MONOCYTES # (AUTO) 0.8 K/UL (0.1-1.30); MONOCYTES % (AUTO) 8.9 % (0.0-11.0); NEUTROPHILS # (AUTO) 6.3 K/UL (1.8-8.9); NEUTROPHILS % (AUTO) 69.7 % (38.5-71.5); PLATELET COUNT (AUTO) 317 K/UL (150-450); RED BLOOD CELL COUNT(AUTO) 3.71 MIL/UL (4.2-5.4)
[2017-04-12] MEDS: GABAPENTIN 300 MG CAPSULE PO SCH ×2 (08:02→16:18)
[2017-04-12] MEDS: QUETIAPINE FUMARATE 25 MG TABLET PO SCH (08:02)
[2017-04-12] MEDS: METFORMIN HCL 500 MG TABLET PO SCH ×2 (08:02→17:04)
[2017-04-12 08:16] VITALS: BP 151/86
--- NOTE | 2017-04-12 08:49 | NUR ---
CALLED PREVIOUS LIVING FACILITY TO CHECK STATUS OF PNA VACCINE. UNKNOWN PER FACILITY, WILL FOLLOW UP WITH DAUGHTER.
[2017-04-12] MEDS ORDERED: DILTIAZEM HCL CD 120 MG CAP.SR.24H PO SCH (09:00)
[2017-04-12] MEDS ORDERED: ESCITALOPRAM OXALATE 10 MG TABLET PO SCH (09:00)
--- NOTE | 2017-04-12 09:42 | NUR ---
MEDICATIONS NOT IN PIXIS, WILL CALL PHARMACY
[2017-04-12] MEDS: FAMOTIDINE. 20 MG/2 ML VIAL IV SCH (09:47)
[2017-04-12] MEDS ORDERED: POTASSIUM CHLORIDE 20 MEQ POWDER PACKET PO ONE (11:15)
[2017-04-12 11:41] VITALS: BP 133/82
[2017-04-12] MEDS ORDERED: POTASSIUM PHOSPHATE MM 7.5 MMOL in IV DEXTROSE 5% 100 ML IV ONE (12:30)
[2017-04-12] MEDS: IV D5 1/2 NS 1000 ML 1,000 ML IV PRN (14:59)
[2017-04-12 15:28] VITALS: BP 128/76
[2017-04-12] MEDS ORDERED: CLON0.5T4 PO (15:39)
[2017-04-12] MEDS ORDERED: DILT120C62 PO (15:39)
[2017-04-12] MEDS ORDERED: ACET-2154 PO (15:39)
[2017-04-12] MEDS ORDERED: ALBU1.25 NEB (15:39)
[2017-04-12] MEDS ORDERED: BISA10SU12 RC (15:39)
[2017-04-12] MEDS ORDERED: METF500T4 PO (15:39)
[2017-04-12] MEDS ORDERED: ATOR10TA PO (15:39)
[2017-04-12] MEDS ORDERED: CLON1PAT TD (15:39)
[2017-04-12] MEDS ORDERED: FAMO20TA8 PO (15:39)
--- NOTE | 2017-04-12 17:35 | NUR ---
DISCHARGE NOTED. IV REMOVED WITH NO REDNESS OR IRRITATION NOTED. ALL DISCHARGE PAPERWORK SIGNED AND PICTURES TAKEN. PT TAKEN DOWN TO [facility] VIA WHEELCHAIR WITH 1:1 SITTER.
[2017-04-12] MEDS ORDERED: FAMOTIDINE 20 MG TABLET PO SCH (21:00)
== END 2017-04-12 17:35 | DRG 871 ==
LOC: TELE 21:18 → MED 04-10 17:18
PROVIDERS: ADMIT Internal Medicine; ATTEND Internal Medicine
PROC: 0DCQ7ZZ Extirpation of Matter from Anus, Via Natural or Artificial Opening (ICD-10-PCS; principal; 2017-04-11)
DX: A41.9 Sepsis, unspecified organism (principal); J69.0 Pneumonitis due to inhalation of food and vomit; G93.40 Encephalopathy, unspecified; E83.42 Hypomagnesemia; E83.52 Hypercalcemia; D68.59 Other primary thrombophilia; I50.32 Chronic diastolic (congestive) heart failure; I31.3 Pericardial effusion (noninflammatory); K56.7 Ileus, unspecified; F02.81 Dementia in other diseases classified elsewhere, unspecified severity, with behavioral disturbance; R47.01 Aphasia; J98.11 Atelectasis; I11.0 Hypertensive heart disease with heart failure; E87.5 Hyperkalemia; G30.9 Alzheimer's disease, unspecified; K56.41 Fecal impaction; Z96.651 Presence of right artificial knee joint; Z98.82 Breast implant status; Z87.891 Personal history of nicotine dependence; Z79.899 Other long term (current) drug therapy; R13.10 Dysphagia, unspecified; M19.90 Unspecified osteoarthritis, unspecified site; K76.0 Fatty (change of) liver, not elsewhere classified; K44.9 Diaphragmatic hernia without obstruction or gangrene; F10.21 Alcohol dependence, in remission; E78.5 Hyperlipidemia, unspecified; J44.9 Chronic obstructive pulmonary disease, unspecified; E66.9 Obesity, unspecified; Z68.26 Body mass index [BMI] 26.0-26.9, adult; F41.9 Anxiety disorder, unspecified; F06.8 Other specified mental disorders due to known physiological condition; E11.9 Type 2 diabetes mellitus without complications; Z74.09 Other reduced mobility; E03.9 Hypothyroidism, unspecified; K42.9 Umbilical hernia without obstruction or gangrene; B36.9 Superficial mycosis, unspecified; I25.10 Atherosclerotic heart disease of native coronary artery without angina pectoris
CPT/HCPCS: 36415; 70030-TC; 70450; 71010; 71250; 74000; 83690; 83735; 84100; 84443; 85025; 85730; 93005; 93307; 97116; 97530; J1815; J2270; J2543; J3370; J3475; J3490; J7050; J7060

== ENCOUNTER 2017-04-12 19:15 | Inpatient (IN) | payer MEDICARE ==
[~2017-04-12] VITALS: Ht 172.7 cm; Wt 76.2 kg
[~2017-04-12 19:15] MED LIST changes: +ACET-2154 PO; -ACLI400A2 IH; +ALBU1.25 NEB; -ALBU8.5H8 IH; +ATOR10TA PO; +BISA10SU12 RC; +BLOO-140 IN; +CLON0.5T PO; +CLON0.5T4 PO; +CLON1PAT TD; -CLON1TAB4 PO; +DEXT50VI3 IV; -DIAZ5TAB PO; +DILT120C62 PO; +DIPH50DI IV; +FAMO20TA8 PO; +FAMO20VI10 IV; +FLUT1BLS IH; -FLUT1DIS27 INH; -IBUP-1953 PO; +MAGN400O6 PO; +METF500T4 PO; +METH40VI37 IV; +NA P133E RC; +ONDA4VIA30 IV; -QUET400T PO; +QUET50TA PO; +TEMA7.5C2 PO; -TRAZ-144 PO
--- NOTE | 2017-04-12 20:00 | NUR ---
Received patient in her bed. she is a/o x 1. she was assisted to the bathroom and had a BM. medications were reconciled with
[2017-04-12 20:34] VITALS: BP 121/68
[2017-04-12] MEDS ORDERED: MAG HYDROX/AL HYDROX/SIMETH 30 ML LIQUID UDC PO PRN (21:15)
[2017-04-12] MEDS ORDERED: MAGNESIUM HYDROXIDE 30 ML LIQUID UDC PO PRN (21:15)
[2017-04-12] MEDS ORDERED: ACETAMINOPHEN 325 MG TABLET PO PRN ×2 (21:15→21:30)
[2017-04-12] MEDS ORDERED: INSULIN REGULAR, HUMAN 300 UNIT/3 ML VIAL SQ PRN (21:30)
[2017-04-12] MEDS ORDERED: ALBUTEROL SULFATE 1.25 MG/3 ML NEBU NEB PRN (21:30)
[2017-04-12] MEDS ORDERED: BISACODYL 10 MG SUPP.RECT RC PRN (21:30)
[2017-04-12] MEDS ORDERED: CLONAZEPAM 0.5 MG TABLET PO PRN (21:30)
[2017-04-12] MEDS ORDERED: DEXTROSE 50% 50 ML DISP.SYRIN IV PRN (21:30)
[2017-04-12] MEDS ORDERED: MIRALAX 17 GM POWD.PACK PO PRN (21:30)
[2017-04-12] MEDS ORDERED: TRIAMCINOLONE ACET 0.5% CREAM 15 GM TUBE TP PRN (21:30)
--- NOTE | 2017-04-12 22:00 | NUR ---
medications were reconciled by MD. Catapres 0.1mg TD patch Q7days for HTN was ordered by MD; however, patient has already Catapres 0.1mg patch on her left deltoid that was placed on 04/10/17 at 1800.
[2017-04-13 03:21] VITALS: BP 121/68
[2017-04-13] MEDS: LORAZEPAM 0.5 MG TABLET PO PRN (05:32)
[2017-04-13] MEDS ORDERED: LORAZEPAM 0.5 MG TABLET ONE (05:45)
--- NOTE | 2017-04-13 06:39 | NUR ---
patient slept for approx 9hrs through the night. She was noted agitated at approx 0520, verbal redirection given; however, ineffective. Ativan 1mg PO PRN for agitation was given at 0532. will continue to monitor.
[2017-04-13] MEDS: BLOOD SUGAR DIAGNOSTIC 1 EACH STRIP VI SCH ×4 (07:03→20:23)
[2017-04-13 07:30] VITALS: BP 140/95
[2017-04-13] MEDS: CHOLECALCIFEROL 1,000 UNIT TABLET PO SCH (08:00)
[2017-04-13] MEDS: MULTIVITAMINS,THERAPEUTIC TABLET PO SCH (08:01)
[2017-04-13] MEDS: FAMOTIDINE 20 MG TABLET PO SCH ×2 (08:01→20:11)
[2017-04-13] MEDS: METFORMIN HCL 500 MG TABLET PO SCH ×2 (08:01→17:09)
[2017-04-13] MEDS: DOCUSATE SODIUM 100 MG CAPSULE PO SCH ×2 (08:02→20:10)
[2017-04-13] MEDS: DILTIAZEM HCL CD 120 MG CAP.SR.24H PO SCH (08:36)
[2017-04-13] MEDS: FLUTICASONE/VILANTEROL 1 EACH BLST.W.DEV IH SCH (08:38)
[2017-04-13] MEDS ORDERED: ESCITALOPRAM OXALATE 10 MG TABLET PO SCH (09:00)
[2017-04-13] MEDS ORDERED: Medication Not On Formulary EA (Quetiapine Fumarate (Seroquel) 50 MG) PO SCH (09:00)
[2017-04-13] MEDS ORDERED: Medication Not On Formulary EA (Multivitamins 1 EACH) PO SCH (09:00)
[2017-04-13] MEDS ORDERED: Medication Not On Formulary EA (Docusate Sodium 100 MG) PO SCH (09:00)
[2017-04-13] MEDS ORDERED: GABAPENTIN 300 MG CAPSULE PO SCH (09:00)
[2017-04-13] MEDS: CLOTRIMAZOLE/BETAMET DIPROP CREAM 15 GM TUBE TOP SCH ×2 (13:45→20:14)
[2017-04-13] MEDS ORDERED: Z GUARD REMEDY PASTE 57 GM TUBE TOP PRN (14:30)
[2017-04-13 16:38] VITALS: BP 132/90
[2017-04-13] MEDS: ATORVASTATIN 10 MG TABLET PO SCH (20:11)
[2017-04-13] MEDS: QUETIAPINE FUMARATE 25 MG TABLET PO SCH (20:11)
[2017-04-13 20:17] VITALS: BP 148/88
[2017-04-13] MEDS ORDERED: QUETIAPINE FUMARATE 25 MG TABLET ONE (20:22)
[2017-04-14] MEDS: BLOOD SUGAR DIAGNOSTIC 1 EACH STRIP VI SCH ×4 (06:41→20:10)
[2017-04-14 07:25] LABS: BASOPHILS # (AUTO) 0.1 K/uL (0.0-8.0); BASOPHILS % (AUTO) 0.9 % (0.0-2.0); EOSINOPHILS # (AUTO) 0.2 K/uL (0.0-0.7); EOSINOPHILS % (AUTO) 2.8 % (0.0-7.0); HEMOGLOBIN 12.4 G/DL (12.0-16.0); LYMPHOCYTES # (AUTO) 1.5 K/UL (0.8-4.8); LYMPHOCYTES % (AUTO) 19.4 % (20.5-51.5); MEAN CORPUSCULAR HEMOGLOBIN 31.6 UUG (27.0-31.0); MEAN CORPUSCULAR HGB CONC 34 g/dL (32.0-37.0); MEAN CORPUSCULAR VOLUME 94.2 FL (81.0-99.0); MONOCYTES # (AUTO) 0.6 K/UL (0.1-1.30); MONOCYTES % (AUTO) 7.3 % (0.0-11.0); NEUTROPHILS # (AUTO) 5.4 K/UL (1.8-8.9); NEUTROPHILS % (AUTO) 69.6 % (38.5-71.5); PLATELET COUNT (AUTO) 309 K/UL (150-450); RED BLOOD CELL COUNT(AUTO) 3.93 MIL/UL (4.2-5.4); WHITE BLOOD COUNT (AUTO) 7.8 K/UL (4.0-11.2)
[2017-04-14 07:30] VITALS: BP 150/83
[2017-04-14 08:08] LABS: ALANINE AMINOTRANSFERASE 14 U/L (14-59); ALKALINE PHOSPHATASE 101 U/L (50-136); ASPARTATE AMINOTRANSFERASE 12 U/L (15-37); BILIRUBIN,TOTAL 0.4 mg/dL (0.2-1.0); CARBON DIOXIDE 26 mmol/L (21-32); CHLORIDE 105 mmol/L (98-107); CREATININE 0.7 mg/dL (0.6-1.3); GLUCOSE 111 mg/dL (74-106); MAGNESIUM 1.8 mg/dL (1.8-2.4); PHOSPHOROUS 2.6 mg/dL (2.5-4.9); POTASSIUM 3.9 mmol/L (3.5-5.1); UREA NITROGEN, BLOOD 24 mg/dL (7-18)
[2017-04-14] MEDS: DOCUSATE SODIUM 100 MG CAPSULE PO SCH ×2 (08:30→20:05)
[2017-04-14] MEDS: CHOLECALCIFEROL 1,000 UNIT TABLET PO SCH (08:30)
[2017-04-14] MEDS: FAMOTIDINE 20 MG TABLET PO SCH ×2 (08:31→20:06)
[2017-04-14] MEDS: MULTIVITAMINS,THERAPEUTIC TABLET PO SCH (08:31)
[2017-04-14] MEDS: DILTIAZEM HCL CD 120 MG CAP.SR.24H PO SCH (08:31)
[2017-04-14] MEDS: QUETIAPINE FUMARATE 25 MG TABLET PO SCH ×2 (08:32→20:06)
[2017-04-14] MEDS: METFORMIN HCL 500 MG TABLET PO SCH ×2 (08:32→17:21)
[2017-04-14] MEDS: FLUTICASONE/VILANTEROL 1 EACH BLST.W.DEV IH SCH (09:01)
[2017-04-14] MEDS: CLOTRIMAZOLE/BETAMET DIPROP CREAM 15 GM TUBE TOP SCH ×2 (09:02→20:30)
[2017-04-14] MEDS: AMLODIPINE 5 MG TABLET PO SCH (15:12)
--- NOTE | 2017-04-14 16:13 | NUR ---
Acoustic Intelligence Specialist: PADMINI submitted [employer] report on 04/12/17
[2017-04-14 16:56] VITALS: BP 140/84
[2017-04-14] MEDS: ATORVASTATIN 10 MG TABLET PO SCH (20:06)
[2017-04-14 20:29] VITALS: BP 129/74
--- NOTE | 2017-04-14 20:50 | NUR ---
PATIENT RECEIVED AWAKE.PATIENT COMPLIANT WITH MEICATIONS.PATIENT WITH PERIODS OF AGITATION AND UNCOOPERATIVE WHEN CARE IS RENDERED. NO AGGRESSIVE OR COMBATIVE BEHAVIOR NOTED WILL CONTINUE TO MONITOR. ACCUCHECK 124 MG/DL. PATIENT DENIES PAIN AT THIS TIME, WILL CONTINUE TO MONITOR.
[2017-04-14] MEDS: TEMAZEPAM 7.5 MG CAPSULE PO PRN (22:48)
[2017-04-15 07:50] VITALS: BP 141/81
[2017-04-15] MEDS: QUETIAPINE FUMARATE 25 MG TABLET PO SCH ×2 (08:16→20:23)
[2017-04-15] MEDS: CHOLECALCIFEROL 1,000 UNIT TABLET PO SCH (08:16)
[2017-04-15] MEDS: MULTIVITAMINS,THERAPEUTIC TABLET PO SCH (08:17)
[2017-04-15] MEDS: AMLODIPINE 5 MG TABLET PO SCH (08:17)
[2017-04-15] MEDS: FAMOTIDINE 20 MG TABLET PO SCH ×2 (08:17→20:23)
[2017-04-15] MEDS: DILTIAZEM HCL CD 120 MG CAP.SR.24H PO SCH (08:17)
[2017-04-15] MEDS: ESCITALOPRAM OXALATE 10 MG TABLET PO SCH (08:17)
[2017-04-15] MEDS: FLUTICASONE/VILANTEROL 1 EACH BLST.W.DEV IH SCH (08:17)
[2017-04-15] MEDS: METFORMIN HCL 500 MG TABLET PO SCH ×2 (08:17→17:43)
[2017-04-15] MEDS: DOCUSATE SODIUM 100 MG CAPSULE PO SCH ×2 (08:18→20:22)
[2017-04-15] MEDS: CLOTRIMAZOLE/BETAMET DIPROP CREAM 15 GM TUBE TOP SCH ×2 (08:19→21:56)
--- NOTE | 2017-04-15 16:34 | NUR ---
Initial Discharge Instructions: Pt resides at [facility] [[address] [place] [address]; ]. Spoke with pt's son/DPOA who would like pt to return there. Spoke with Jeni at the facility who states they will assess pt when discharge date is closer. SW will speak with pt, family, facility, and MD regarding appropriate discharge plans. SW will form a safe and proper discharge.
[2017-04-15 16:43] VITALS: BP 149/74
[2017-04-15 19:52] VITALS: BP 136/76
[2017-04-15] MEDS: ATORVASTATIN 10 MG TABLET PO SCH (20:22)
[2017-04-16] MEDS: CLOTRIMAZOLE/BETAMET DIPROP CREAM 15 GM TUBE TOP SCH ×2 (08:11→20:07)
[2017-04-16] MEDS: CHOLECALCIFEROL 1,000 UNIT TABLET PO SCH (08:11)
[2017-04-16] MEDS: FAMOTIDINE 20 MG TABLET PO SCH ×2 (08:12→20:07)
[2017-04-16] MEDS: DILTIAZEM HCL CD 120 MG CAP.SR.24H PO SCH (08:12)
[2017-04-16] MEDS: AMLODIPINE 5 MG TABLET PO SCH (08:12)
[2017-04-16] MEDS: METFORMIN HCL 500 MG TABLET PO SCH ×2 (08:12→17:02)
[2017-04-16] MEDS: QUETIAPINE FUMARATE 25 MG TABLET PO SCH ×2 (08:12→20:07)
[2017-04-16] MEDS: ESCITALOPRAM OXALATE 10 MG TABLET PO SCH (08:12)
[2017-04-16] MEDS: MULTIVITAMINS,THERAPEUTIC TABLET PO SCH (08:12)
[2017-04-16] MEDS: FLUTICASONE/VILANTEROL 1 EACH BLST.W.DEV IH SCH (08:13)
[2017-04-16] MEDS: DOCUSATE SODIUM 100 MG CAPSULE PO SCH ×2 (08:13→20:07)
[2017-04-16 09:00] VITALS: BP 137/77
[2017-04-16 15:53] VITALS: BP 131/72
[2017-04-16] MEDS: ATORVASTATIN 10 MG TABLET PO SCH (20:07)
[2017-04-16 20:36] VITALS: BP 130/78
[2017-04-17] MEDS: TEMAZEPAM 7.5 MG CAPSULE PO PRN (00:14)
--- NOTE | 2017-04-17 00:15 | NUR ---
PATIENT NOTED UP AWAKE IN A PARISH CHAIR. TEMAZEPAM 7.5MG PO PRN FOR INSOMNIA WAS GIVEN. WILL CONTINUE TO MONITOR.
--- NOTE | 2017-04-17 01:30 | NUR ---
PATIENT IN BED ASLEEP. TEMAZEPAM 7.5MG PO PRN FOR INSOMNIA WAS EFFECTIVE.
--- NOTE | 2017-04-17 06:57 | NUR ---
PATIENT SLEPT FOR APPROX 5 HRS THROUGH THE NIGHT. SHOWER WAS OFFERED; HOWEVER, PT REFUSED AT THIS TIME.
[2017-04-17 07:30] VITALS: BP 144/83
[2017-04-17] MEDS: METFORMIN HCL 500 MG TABLET PO SCH ×2 (07:42→17:03)
--- NOTE | 2017-04-17 08:00 | NUR ---
ON THE PARISH/CHAIR FEEDING SELF COMPLIANT WITH MEDICATIONS AND CARE WILL CONTINUE TO PROVIDE SAFE AND THERAPEUTIC ENVIRONMENT AT ALL TIMES.
[2017-04-17] MEDS ORDERED: CLONIDINE-TTS 1 PATCH TD SCH (09:00)
[2017-04-17] MEDS: FAMOTIDINE 20 MG TABLET PO SCH ×2 (09:57→20:12)
[2017-04-17] MEDS: CHOLECALCIFEROL 1,000 UNIT TABLET PO SCH (09:57)
[2017-04-17] MEDS: DOCUSATE SODIUM 100 MG CAPSULE PO SCH ×2 (09:57→20:12)
[2017-04-17] MEDS: MULTIVITAMINS,THERAPEUTIC TABLET PO SCH (09:57)
[2017-04-17] MEDS: AMLODIPINE 5 MG TABLET PO SCH (09:58)
[2017-04-17] MEDS: QUETIAPINE FUMARATE 25 MG TABLET PO SCH ×2 (09:58→20:12)
[2017-04-17] MEDS: ESCITALOPRAM OXALATE 10 MG TABLET PO SCH (09:58)
[2017-04-17] MEDS: DILTIAZEM HCL CD 120 MG CAP.SR.24H PO SCH (09:59)
[2017-04-17] MEDS: FLUTICASONE/VILANTEROL 1 EACH BLST.W.DEV IH SCH (09:59)
[2017-04-17] MEDS: CLOTRIMAZOLE/BETAMET DIPROP CREAM 15 GM TUBE TOP SCH ×2 (10:01→20:12)
[2017-04-17 15:00] VITALS: BP 119/76
--- NOTE | 2017-04-17 17:00 | NUR ---
ASSISTED INTO THE BATHROOM WITH THE FRONT WHEEL WALKER ABLE TO TAKE FEW STEPS WITH PROMPTS AND ASSISTANCE KEPT CLEAN AND DRY
[2017-04-17] MEDS: ATORVASTATIN 10 MG TABLET PO SCH (20:12)
[2017-04-17 20:40] VITALS: BP 124/77
--- NOTE | 2017-04-18 06:24 | NUR ---
GPS: PATIENT REMAIN UNCOOPERATIVE WITH NURSING CARE. COMPLIANT WITH MEDICATION. INCONTINENT OF B+B. GOOD PIO CARE GIVEN. SLEPT 07:30 HRS THROUGH THE NIGHT. CONTINUE PLAN OF CARE.
[2017-04-18 07:30] VITALS: BP 146/94
[2017-04-18] MEDS: AMLODIPINE 5 MG TABLET PO SCH (08:29)
[2017-04-18] MEDS: CHOLECALCIFEROL 1,000 UNIT TABLET PO SCH (08:30)
[2017-04-18] MEDS: DILTIAZEM HCL CD 120 MG CAP.SR.24H PO SCH (08:30)
[2017-04-18] MEDS: ESCITALOPRAM OXALATE 10 MG TABLET PO SCH (08:30)
[2017-04-18] MEDS: METFORMIN HCL 500 MG TABLET PO SCH ×2 (08:30→18:24)
[2017-04-18] MEDS: DOCUSATE SODIUM 100 MG CAPSULE PO SCH ×2 (08:30→20:11)
[2017-04-18] MEDS: QUETIAPINE FUMARATE 25 MG TABLET PO SCH ×2 (08:31→20:11)
[2017-04-18] MEDS: MULTIVITAMINS,THERAPEUTIC TABLET PO SCH (08:31)
[2017-04-18] MEDS: FAMOTIDINE 20 MG TABLET PO SCH ×2 (08:31→20:11)
[2017-04-18] MEDS: FLUTICASONE/VILANTEROL 1 EACH BLST.W.DEV IH SCH (08:32)
[2017-04-18] MEDS: CLOTRIMAZOLE/BETAMET DIPROP CREAM 15 GM TUBE TOP SCH ×2 (08:32→20:12)
[2017-04-18 15:00] VITALS: BP 115/73
[2017-04-18 19:50] VITALS: BP 136/75
[2017-04-18] MEDS: ATORVASTATIN 10 MG TABLET PO SCH (20:11)
[2017-04-19] MEDS: LORAZEPAM 0.5 MG TABLET PO PRN (03:36)
[2017-04-19 07:30] VITALS: BP 136/81
[2017-04-19] MEDS: DOCUSATE SODIUM 100 MG CAPSULE PO SCH ×2 (08:11→22:35)
[2017-04-19] MEDS: METFORMIN HCL 500 MG TABLET PO SCH ×2 (08:11→17:26)
[2017-04-19] MEDS: FAMOTIDINE 20 MG TABLET PO SCH ×2 (08:12→22:35)
[2017-04-19] MEDS: QUETIAPINE FUMARATE 25 MG TABLET PO SCH ×2 (08:12→22:35)
[2017-04-19] MEDS: MULTIVITAMINS,THERAPEUTIC TABLET PO SCH (08:12)
[2017-04-19] MEDS: ESCITALOPRAM OXALATE 10 MG TABLET PO SCH (08:13)
[2017-04-19] MEDS: AMLODIPINE 5 MG TABLET PO SCH (08:13)
[2017-04-19] MEDS: CHOLECALCIFEROL 1,000 UNIT TABLET PO SCH (08:14)
[2017-04-19] MEDS: DILTIAZEM HCL CD 120 MG CAP.SR.24H PO SCH (08:14)
[2017-04-19] MEDS: CLOTRIMAZOLE/BETAMET DIPROP CREAM 15 GM TUBE TOP SCH ×2 (08:14→21:00)
[2017-04-19] MEDS: FLUTICASONE/VILANTEROL 1 EACH BLST.W.DEV IH SCH ×2 (08:18→08:37)
[2017-04-19 16:27] VITALS: BP 122/65
[2017-04-19 20:07] VITALS: BP 137/68
[2017-04-19] MEDS: ATORVASTATIN 10 MG TABLET PO SCH (22:35)
--- NOTE | 2017-04-20 04:28 | NUR ---
GPS/NSG Patient first observed awake in david chair visible on the unit. Patient appears to be alert oriented to name, requires redirection for medication compliance. Patient remained awake most of shift appeared anxious requiring redirection through out the night to keep safe, without injury, patient is unsteady, at great risk for falls. Continue observation as well as continue to provide a safe environment.
[2017-04-20 07:30] VITALS: BP 146/78
[2017-04-20] MEDS: QUETIAPINE FUMARATE 25 MG TABLET PO SCH ×3 (09:28→21:00)
[2017-04-20] MEDS: FAMOTIDINE 20 MG TABLET PO SCH ×3 (09:29→21:00)
[2017-04-20] MEDS: AMLODIPINE 5 MG TABLET PO SCH (09:29)
[2017-04-20] MEDS: METFORMIN HCL 500 MG TABLET PO SCH ×2 (09:29→18:14)
[2017-04-20] MEDS: ESCITALOPRAM OXALATE 10 MG TABLET PO SCH (09:29)
[2017-04-20] MEDS: CHOLECALCIFEROL 1,000 UNIT TABLET PO SCH (09:29)
[2017-04-20] MEDS: DOCUSATE SODIUM 100 MG CAPSULE PO SCH ×3 (09:30→21:00)
[2017-04-20] MEDS: DILTIAZEM HCL CD 120 MG CAP.SR.24H PO SCH (09:30)
[2017-04-20] MEDS: MULTIVITAMINS,THERAPEUTIC TABLET PO SCH (09:30)
[2017-04-20] MEDS: CLOTRIMAZOLE/BETAMET DIPROP CREAM 15 GM TUBE TOP SCH ×2 (09:33→20:44)
[2017-04-20] MEDS: FLUTICASONE/VILANTEROL 1 EACH BLST.W.DEV IH SCH (09:33)
[2017-04-20 16:39] VITALS: BP 108/62
[2017-04-20 19:47] VITALS: BP 129/75
[2017-04-20] MEDS: ATORVASTATIN 10 MG TABLET PO SCH (20:51)
--- NOTE | 2017-04-20 21:00 | NUR ---
GPS/AQUATICS COORDINATOR Patient spit out most of hs po medication, with second attempt patient took 25 mg Seroquel, Pepcid and Colace via charge nurse. patient is unsteady, at great risk for falls. Continue observation as well as continue to provide a safe environment.
--- NOTE | 2017-04-21 06:46 | NUR ---
GPS: REMAIN UNCOOPERATIVE WITH MEDICATION AND CARE. SLEPT 7 HRS THROUGH THE NIGHT.ASSISTED WITH ADL'S. PATIENT IS HYPERVERBAL AND VERBALLY ABUSIVE TO NURSING STAFF. CONTINUE PLAN OF CARE.
[2017-04-21 07:30] VITALS: BP 133/85
[2017-04-21] MEDS: QUETIAPINE FUMARATE 25 MG TABLET PO SCH ×2 (11:33→20:14)
[2017-04-21] MEDS: ESCITALOPRAM OXALATE 10 MG TABLET PO SCH (11:34)
[2017-04-21] MEDS: CHOLECALCIFEROL 1,000 UNIT TABLET PO SCH (11:34)
[2017-04-21] MEDS: FAMOTIDINE 20 MG TABLET PO SCH ×2 (11:34→20:13)
[2017-04-21] MEDS: AMLODIPINE 5 MG TABLET PO SCH (11:35)
[2017-04-21] MEDS: DOCUSATE SODIUM 100 MG CAPSULE PO SCH ×2 (11:35→20:13)
[2017-04-21] MEDS: MULTIVITAMINS,THERAPEUTIC TABLET PO SCH (11:35)
[2017-04-21] MEDS: DILTIAZEM HCL CD 120 MG CAP.SR.24H PO SCH (11:35)
[2017-04-21] MEDS: FLUTICASONE/VILANTEROL 1 EACH BLST.W.DEV IH SCH (11:38)
[2017-04-21] MEDS: METFORMIN HCL 500 MG TABLET PO SCH ×2 (11:44→18:05)
[2017-04-21] MEDS: CLOTRIMAZOLE/BETAMET DIPROP CREAM 15 GM TUBE TOP SCH ×2 (11:48→20:14)
[2017-04-21 16:41] VITALS: BP 114/62
[2017-04-21] MEDS: ATORVASTATIN 10 MG TABLET PO SCH (20:13)
[2017-04-21 21:07] VITALS: BP 110/70
[2017-04-21] MEDS: TEMAZEPAM 7.5 MG CAPSULE PO PRN (22:00)
[2017-04-22 07:30] VITALS: BP 111/71
[2017-04-22] MEDS: METFORMIN HCL 500 MG TABLET PO SCH (08:46)
[2017-04-22] MEDS: MULTIVITAMINS,THERAPEUTIC TABLET PO SCH (08:47)
[2017-04-22] MEDS: QUETIAPINE FUMARATE 25 MG TABLET PO SCH (08:48)
[2017-04-22 08:49] VITALS: BP 111/71
[2017-04-22] MEDS: FAMOTIDINE 20 MG TABLET PO SCH (08:49)
[2017-04-22] MEDS: DILTIAZEM HCL CD 120 MG CAP.SR.24H PO SCH (08:49)
[2017-04-22] MEDS: DOCUSATE SODIUM 100 MG CAPSULE PO SCH (08:49)
[2017-04-22] MEDS: CHOLECALCIFEROL 1,000 UNIT TABLET PO SCH (08:49)
[2017-04-22] MEDS: AMLODIPINE 5 MG TABLET PO SCH (08:49)
[2017-04-22] MEDS: ESCITALOPRAM OXALATE 10 MG TABLET PO SCH (08:50)
[2017-04-22] MEDS: CLOTRIMAZOLE/BETAMET DIPROP CREAM 15 GM TUBE TOP SCH (08:58)
[2017-04-22] MEDS: FLUTICASONE/VILANTEROL 1 EACH BLST.W.DEV IH SCH (08:58)
[2017-04-22] MEDS ORDERED: Z GUARD REMEDY PASTE 57 GM TUBE TOP PRN (11:15)
--- NOTE | 2017-04-22 12:40 | NUR ---
DC Note: Patient will be discharged to [facility] [id number] [place] [id number]; via private transportation provided by [facility] at 2:30pm. Spoke with Ne at the facility who states that she is ready to accept the patient today. Spoke with patients son, Mainor ) who is aware and agreeable with discharge plans. Patient is aware and agreeable with discharge plans. Pt will follow-up with Dr. Nguyen ([phone]) at the facility (PCP) and was given outpatient psych referrals for Dr. Peter ; Dr. Mcfarlane [phone]; and Dr. Chao [phone] (Psychiatrist). Patient was referred to [facility] , [facility] , and [facility] .
--- NOTE | 2017-04-22 15:25 | NUR ---
Patient discharged to [facility] [[address] [place] [address]] via private transportation. Pt will follow up with Dr. Nguyen ([phone]) at the facility (PCP) and was given outpatient psych referral for Dr. Peter ; Dr. Mcfarlane [phone]; and Dr. Chao [phone]. pt discharged with prescriptions, all belongs, Exitcare packet, discharge paper work, pt vital signs stable, pt stable to transport, well groomed, calm, cooperative, AOx1, pt skin is intact but her bottom and inner thighs are red, z guarded applied. Brenton from [facility] was notified.
== END 2017-04-22 15:25 | DRG 885 ==
LOC: GPS 19:15
PROVIDERS: ADMIT Psychiatry & Neurology Psychiatry; ATTEND Internal Medicine
DX: F32.3 Major depressive disorder, single episode, severe with psychotic features (principal); F02.80 Dementia in other diseases classified elsewhere, unspecified severity, without behavioral disturbance, psychotic disturbance, mood disturbance, and anxiety; I11.0 Hypertensive heart disease with heart failure; G93.40 Encephalopathy, unspecified; D68.59 Other primary thrombophilia; E83.52 Hypercalcemia; E83.42 Hypomagnesemia; I48.0 Paroxysmal atrial fibrillation; I50.32 Chronic diastolic (congestive) heart failure; B36.8 Other specified superficial mycoses; D53.9 Nutritional anemia, unspecified; E11.9 Type 2 diabetes mellitus without complications; E03.9 Hypothyroidism, unspecified; G30.9 Alzheimer's disease, unspecified; E66.9 Obesity, unspecified; E87.6 Hypokalemia; Z68.25 Body mass index [BMI] 25.0-25.9, adult; Z87.891 Personal history of nicotine dependence; Z87.01 Personal history of pneumonia (recurrent); Z96.651 Presence of right artificial knee joint; Z79.84 Long term (current) use of oral hypoglycemic drugs; K42.9 Umbilical hernia without obstruction or gangrene; I25.10 Atherosclerotic heart disease of native coronary artery without angina pectoris; J44.9 Chronic obstructive pulmonary disease, unspecified; E78.5 Hyperlipidemia, unspecified; K21.9 Gastro-esophageal reflux disease without esophagitis; Z74.09 Other reduced mobility; M19.90 Unspecified osteoarthritis, unspecified site; F41.9 Anxiety disorder, unspecified
CPT/HCPCS: 36415; 83735; 84100; 85025; 94664; 97110; 97116; 97530; J1815

== ENCOUNTER 2017-08-17 20:16 | Inpatient (IN) | payer MEDICARE ==
[~2017-08-17] VITALS: Ht 175.3 cm; Wt 68.0 kg
[~2017-08-17 20:16] MED LIST changes: -ACET325S18 PO; -CLON0.5T PO; -DILT60TA35 PO; -DIPH50DI IV; -FAMO20VI10 IV; -FOLI1TAB16 PO; -GUAI240S8 PO; -MAGN400O6 PO; -METF-495 PO; -METF500T4 PO; +METF500T6 PO; -METH40VI37 IV; -NA P133E RC; -ONDA4VIA30 IV; -TEMA7.5C2 PO
[2017-08-17] MEDS ORDERED: ALBUTEROL SULFATE 2.5 MG/3 ML NEBU ONE (20:28)
[2017-08-17] MEDS ORDERED: IPRATROPIUM BROMIDE 0.5 MG/2.5 ML NEBU ONE (20:28)
[2017-08-17] MEDS ORDERED: IPRATROPIUM BROMIDE 0.5 MG/2.5 ML NEBU NEB ONE (20:30)
[2017-08-17] MEDS ORDERED: ALBUTEROL SULFATE 2.5 MG/3 ML NEBU NEB ONE (20:30)
[2017-08-17 20:50] LABS: BASOPHILS % (AUTO) 0.3 % (0.0-2.0); EOSINOPHILS # (AUTO) 0.6 K/uL (0.0-0.7); EOSINOPHILS % (AUTO) 5.3 % (0.0-7.0); HEMATOCRIT 34.3 % (31.2-41.9); HEMOGLOBIN 11.5 g/dL (10.9-14.3); LYMPHOCYTES # (AUTO) 0.7 K/uL (20.0-40.0); LYMPHOCYTES % (AUTO) 5.9 % (20.5-51.5); MEAN CORPUSCULAR HEMOGLOBIN 31.4 uug (24.7-32.8); MEAN CORPUSCULAR HGB CONC 34 g/dL (32.3-35.6); MEAN CORPUSCULAR VOLUME 93.9 fL (75.5-95.3); MONOCYTES # (AUTO) 0.7 K/uL (2.0-10.0); MONOCYTES % (AUTO) 6.2 % (0.0-11.0); NEUTROPHILS # (AUTO) 9.9 K/uL (1.8-8.9); NEUTROPHILS % (AUTO) 82.3 % (38.5-71.5); PLATELET COUNT (AUTO) 256 K/uL (179-408); RED BLOOD CELL COUNT(AUTO) 3.65 MIL/uL (3.63-4.92)
[2017-08-17 20:56] LABS: CARBON DIOXIDE 26 mmol/L (21-32); CHLORIDE 101 mmol/L (98-107); CREATININE 0.7 mg/dL (0.6-1.3); GLUCOSE 113 mg/dL (74-106); POTASSIUM 3.9 mmol/L (3.5-5.1); UREA NITROGEN, BLOOD 20 mg/dL (7-18)
[2017-08-17] MEDS ORDERED: LORAZEPAM 2 MG/1 ML VIAL IV ONE ×2 (21:00→21:45)
[2017-08-17] MEDS ORDERED: LORAZEPAM 2 MG/1 ML VIAL ONE ×2 (21:05→21:59)
[2017-08-17 21:09] LABS: ALANINE AMINOTRANSFERASE 21 U/L (14-59); ALKALINE PHOSPHATASE 193 U/L (50-136); ASPARTATE AMINOTRANSFERASE 13 U/L (15-37); BILIRUBIN,DIRECT 0.1 mg/dL (0.0-0.2); BILIRUBIN,TOTAL 0.3 mg/dL (0.2-1.0); TOTAL PROTEIN, SERUM 7.4 g/dL (6.4-8.2)
[2017-08-17] MEDS ORDERED: methylPREDNISolone SOD SUCC 125 MG/2 ML VIAL IV ONE (22:00)
[2017-08-17] MEDS ORDERED: methylPREDNISolone SOD SUCC 125 MG/2 ML VIAL ONE (22:06)
[2017-08-17] MEDS ORDERED: diphenhydrAMINE 50 MG/1 ML VIAL ONE (22:24)
[2017-08-17] MEDS ORDERED: OLANZAPINE 10 MG VIAL IM ONE ×2 (22:25→22:30)
[2017-08-17] MEDS ORDERED: diphenhydrAMINE 50 MG/1 ML VIAL IV ONE (22:30)
[2017-08-17] MEDS ORDERED: MIRALAX 17 GM POWD.PACK PO PRN (23:30)
[2017-08-17] MEDS ORDERED: OLANZAPINE 10 MG VIAL IM PRN (23:30)
[2017-08-17] MEDS ORDERED: BISACODYL 10 MG SUPP.RECT RC PRN (23:30)
[2017-08-17] MEDS ORDERED: ACETAMINOPHEN 325 MG TABLET PO PRN (23:30)
[2017-08-17 23:39] VITALS: BP 143/81
[2017-08-17] MEDS ORDERED: DEXTROSE 50% 50 ML DISP.SYRIN IV PRN (23:45)
[2017-08-18] MEDS ORDERED: LEVOFLOXACIN 500 MG/D5W 100 ML ONE (00:29)
[2017-08-18] MEDS: ALBUTEROL SULFATE 1.25 MG/3 ML NEBU NEB PRN ×5 (00:35→15:20)
[2017-08-18] MEDS: IPRATROPIUM BROMIDE 0.5 MG/2.5 ML NEBU NEB PRN ×5 (00:35→15:20)
[2017-08-18] MEDS: LEVOFLOXACIN 500 MG/D5W 500 MG in PREMIXED 1 EACH IV SCH ×2 (00:45→23:26)
[2017-08-18] MEDS: CLONAZEPAM 0.5 MG TABLET PO PRN ×2 (01:08→11:55)
[2017-08-18 05:57] VITALS: BP 132/90
[2017-08-18] MEDS: methylPREDNISolone SOD SUCC 40 MG/ML VIAL IV SCH ×3 (06:27→21:40)
[2017-08-18] MEDS: BLOOD SUGAR DIAGNOSTIC 1 EACH STRIP VI SCH ×4 (06:30→20:38)
[2017-08-18 06:58] LABS: EOSINOPHILS % (AUTO) 0.4 % (0.0-7.0); HEMATOCRIT 35.3 % (31.2-41.9); HEMOGLOBIN 11.9 g/dL (10.9-14.3); LYMPHOCYTES # (AUTO) 0.3 K/uL (20.0-40.0); LYMPHOCYTES % (AUTO) 4.1 % (20.5-51.5); MEAN CORPUSCULAR HEMOGLOBIN 31.7 uug (24.7-32.8); MEAN CORPUSCULAR HGB CONC 34 g/dL (32.3-35.6); MEAN CORPUSCULAR VOLUME 93.7 fL (75.5-95.3); MONOCYTES # (AUTO) 0.1 K/uL (2.0-10.0); MONOCYTES % (AUTO) 0.9 % (0.0-11.0); NEUTROPHILS # (AUTO) 6.8 K/uL (1.8-8.9); NEUTROPHILS % (AUTO) 94.6 % (38.5-71.5); PLATELET COUNT (AUTO) 258 K/uL (179-408); RED BLOOD CELL COUNT(AUTO) 3.77 MIL/uL (3.63-4.92); WHITE BLOOD COUNT (AUTO) 7.2 K/uL (3.8-11.8)
[2017-08-18 07:36] LABS: ALANINE AMINOTRANSFERASE 20 U/L (14-59); ALKALINE PHOSPHATASE 205 U/L (50-136); ASPARTATE AMINOTRANSFERASE 13 U/L (15-37); BILIRUBIN,TOTAL 0.2 mg/dL (0.2-1.0); CARBON DIOXIDE 25 mmol/L (21-32); CHLORIDE 103 mmol/L (98-107); CREATININE 0.8 mg/dL (0.6-1.3); GLUCOSE 165 mg/dL (74-106); MAGNESIUM 1.6 mg/dL (1.8-2.4); PHOSPHOROUS 2.5 mg/dL (2.5-4.9); POTASSIUM 4.5 mmol/L (3.5-5.1); TOTAL PROTEIN, SERUM 7.8 g/dL (6.4-8.2); UREA NITROGEN, BLOOD 19 mg/dL (7-18)
[2017-08-18] MEDS ORDERED: Medication Not On Formulary EA (Multivitamins 1 EACH) PO SCH (09:00)
[2017-08-18] MEDS ORDERED: Medication Not On Formulary EA (Quetiapine Fumarate (Seroquel) 50 MG) PO SCH (09:00)
[2017-08-18] MEDS ORDERED: Medication Not On Formulary EA (Docusate Sodium 100 MG) PO SCH (09:00)
[2017-08-18] MEDS ORDERED: QUETIAPINE FUMARATE 25 MG TABLET PO SCH (09:00)
[2017-08-18] MEDS ORDERED: ESCITALOPRAM OXALATE 10 MG TABLET PO SCH (09:00)
[2017-08-18] MEDS ORDERED: CHOLECALCIFEROL 1,000 UNIT TABLET PO SCH (09:00)
[2017-08-18] MEDS: DOCUSATE SODIUM 100 MG CAPSULE PO SCH ×2 (09:07→20:37)
[2017-08-18] MEDS: METFORMIN HCL 500 MG TABLET PO SCH ×2 (09:08→17:00)
[2017-08-18] MEDS: GABAPENTIN 300 MG CAPSULE PO SCH ×2 (09:08→16:59)
[2017-08-18] MEDS: MULTIVITAMINS,THERAPEUTIC TABLET PO SCH (09:08)
[2017-08-18] MEDS: DILTIAZEM HCL CD 120 MG CAP.SR.24H PO SCH (09:12)
[2017-08-18] MEDS: FAMOTIDINE 20 MG TABLET PO SCH ×2 (09:13→20:37)
[2017-08-18] MEDS: INSULIN REGULAR, HUMAN 300 UNIT/3 ML VIAL SQ PRN ×3 (09:16→20:39)
[2017-08-18] MEDS: FLUTICASONE/VILANTEROL 1 EACH BLST.W.DEV IH SCH (09:32)
[2017-08-18 11:28] VITALS: BP 114/59
[2017-08-18] MEDS ORDERED: MORPHINE SULFATE 2 MG/1 ML DISP.SYRIN IV PRN (13:30)
[2017-08-18] MEDS ORDERED: CLONAZEPAM 1 MG TABLET PO ONE (13:30)
[2017-08-18 15:04] VITALS: BP 108/64
[2017-08-18] MEDS: MORPHINE SULFATE 4 MG/1 ML DISP.SYRIN IV PRN ×2 (15:51→19:22)
[2017-08-18] MEDS: MAGNESIUM SULFATE/D5W 100 ML IV SCH ×2 (15:59→17:01)
[2017-08-18 16:15] LABS: *BILIRUBIN,URIN NEGATIVE (NEGATIVE); *BLOOD, URINE NEGATIVE (NEGATIVE); *CLARITY,URINE CLEAR (CLEAR); *COLOR,URINE YELLOW (YELLOW); *KETONES,URINE NEGATIVE (NEGATIVE); *PROTEIN,URINE NEGATIVE (NEGATIVE); *UROBILINOGEN,URINE 0.2 E.U./dl (NORMAL); LEUKOCYTE ESTERASE ,URINE TRACE (NEGATIVE); NITRITE, URINE NEGATIVE (NEGATIVE); PH,URINE 5.5 (5.0-8.0); UGLUCOSE NEGATIVE (NEGATIVE)
[2017-08-18 16:26] LABS: BACTERIA,URINE NONE SEEN /HPF (NONE SEEN); RBC,URINE 0-3 /HPF (0-3); SQUAMOUS EPITHELIAL CELL,UR MODERATE /HPF (NONE SEEN); WBC,URINE 0-3 /HPF (0-3)
[2017-08-18] MEDS: DULOXETINE 30 MG CAPSULE.DR PO SCH (17:01)
[2017-08-18] MEDS: CLONAZEPAM 1 MG TABLET PO PRN (18:48)
[2017-08-18 20:14] VITALS: BP 134/68
[2017-08-18] MEDS: QUETIAPINE FUMARATE 100 MG TABLET PO SCH (20:37)
[2017-08-18] MEDS: ATORVASTATIN 10 MG TABLET PO SCH (20:37)
[2017-08-19] MEDS: ALBUTEROL SULFATE 1.25 MG/3 ML NEBU NEB PRN ×2 (02:19→15:37)
[2017-08-19] MEDS: IPRATROPIUM BROMIDE 0.5 MG/2.5 ML NEBU NEB PRN ×2 (02:19→15:37)
[2017-08-19 04:00] VITALS: BP 115/65
[2017-08-19] MEDS: methylPREDNISolone SOD SUCC 40 MG/ML VIAL IV SCH ×3 (06:05→21:13)
[2017-08-19] MEDS: MORPHINE SULFATE 4 MG/1 ML DISP.SYRIN IV PRN ×4 (06:06→22:59)
[2017-08-19] MEDS: BLOOD SUGAR DIAGNOSTIC 1 EACH STRIP VI SCH ×4 (06:37→20:15)
[2017-08-19 07:18] LABS: BASOPHILS % (AUTO) 0.1 % (0.0-2.0); HEMATOCRIT 33.2 % (31.2-41.9); HEMOGLOBIN 11.2 g/dL (10.9-14.3); LYMPHOCYTES # (AUTO) 0.7 K/uL (20.0-40.0); LYMPHOCYTES % (AUTO) 6.1 % (20.5-51.5); MEAN CORPUSCULAR HEMOGLOBIN 31.5 uug (24.7-32.8); MEAN CORPUSCULAR HGB CONC 34 g/dL (32.3-35.6); MEAN CORPUSCULAR VOLUME 93.4 fL (75.5-95.3); MONOCYTES # (AUTO) 0.3 K/uL (2.0-10.0); MONOCYTES % (AUTO) 2.6 % (0.0-11.0); NEUTROPHILS # (AUTO) 10.1 K/uL (1.8-8.9); NEUTROPHILS % (AUTO) 91.2 % (38.5-71.5); PLATELET COUNT (AUTO) 258 K/uL (179-408); RED BLOOD CELL COUNT(AUTO) 3.55 MIL/uL (3.63-4.92)
[2017-08-19 08:00] LABS: ALANINE AMINOTRANSFERASE 17 U/L (14-59); ALKALINE PHOSPHATASE 191 U/L (50-136); ASPARTATE AMINOTRANSFERASE 17 U/L (15-37); BILIRUBIN,TOTAL 0.2 mg/dL (0.2-1.0); CARBON DIOXIDE 26 mmol/L (21-32); CHLORIDE 102 mmol/L (98-107); CREATININE 0.7 mg/dL (0.6-1.3); GLUCOSE 136 mg/dL (74-106); MAGNESIUM 2.3 mg/dL (1.8-2.4); PHOSPHOROUS 3.2 mg/dL (2.5-4.9); POTASSIUM 4.7 mmol/L (3.5-5.1); TOTAL PROTEIN, SERUM 7.7 g/dL (6.4-8.2); UREA NITROGEN, BLOOD 24 mg/dL (7-18)
[2017-08-19] MEDS: METFORMIN HCL 500 MG TABLET PO SCH ×2 (10:11→17:14)
[2017-08-19] MEDS: FLUTICASONE/VILANTEROL 1 EACH BLST.W.DEV IH SCH (10:11)
[2017-08-19] MEDS: DILTIAZEM HCL CD 120 MG CAP.SR.24H PO SCH (10:12)
[2017-08-19] MEDS: DOCUSATE SODIUM 100 MG CAPSULE PO SCH ×2 (10:12→20:14)
[2017-08-19] MEDS: GABAPENTIN 300 MG CAPSULE PO SCH ×2 (10:12→17:14)
[2017-08-19] MEDS: DULOXETINE 30 MG CAPSULE.DR PO SCH (10:12)
[2017-08-19] MEDS: FAMOTIDINE 20 MG TABLET PO SCH ×2 (10:12→20:14)
[2017-08-19] MEDS: MULTIVITAMINS,THERAPEUTIC TABLET PO SCH (10:13)
[2017-08-19] MEDS: QUETIAPINE FUMARATE 100 MG TABLET PO SCH ×2 (10:13→20:14)
[2017-08-19 11:38] VITALS: BP 110/60
[2017-08-19] MEDS: INSULIN REGULAR, HUMAN 300 UNIT/3 ML VIAL SQ PRN ×2 (12:53→20:15)
[2017-08-19 15:08] VITALS: BP 116/68
[2017-08-19] MEDS: CLONAZEPAM 1 MG TABLET PO PRN (19:44)
[2017-08-19] MEDS: ATORVASTATIN 10 MG TABLET PO SCH (20:14)
[2017-08-19 20:51] VITALS: BP 114/46
[2017-08-19] MEDS: LEVOFLOXACIN 500 MG/D5W 500 MG in PREMIXED 1 EACH IV SCH (22:41)
[2017-08-20 04:40] VITALS: BP 114/61
[2017-08-20] MEDS: methylPREDNISolone SOD SUCC 40 MG/ML VIAL IV SCH ×2 (06:37→13:15)
[2017-08-20] MEDS: BLOOD SUGAR DIAGNOSTIC 1 EACH STRIP VI SCH ×3 (06:44→16:14)
[2017-08-20] MEDS: MORPHINE SULFATE 4 MG/1 ML DISP.SYRIN IV PRN ×2 (06:51→13:54)
[2017-08-20] MEDS: IPRATROPIUM BROMIDE 0.5 MG/2.5 ML NEBU NEB PRN (07:24)
[2017-08-20] MEDS: ALBUTEROL SULFATE 1.25 MG/3 ML NEBU NEB PRN (07:24)
[2017-08-20] MEDS: DULOXETINE 30 MG CAPSULE.DR PO SCH (08:05)
[2017-08-20] MEDS: GABAPENTIN 300 MG CAPSULE PO SCH ×2 (08:05→16:14)
[2017-08-20] MEDS: DILTIAZEM HCL CD 120 MG CAP.SR.24H PO SCH (08:05)
[2017-08-20] MEDS: MULTIVITAMINS,THERAPEUTIC TABLET PO SCH (08:05)
[2017-08-20] MEDS: QUETIAPINE FUMARATE 100 MG TABLET PO SCH (08:05)
[2017-08-20] MEDS: FAMOTIDINE 20 MG TABLET PO SCH (08:05)
[2017-08-20] MEDS: METFORMIN HCL 500 MG TABLET PO SCH (08:05)
[2017-08-20] MEDS: FLUTICASONE/VILANTEROL 1 EACH BLST.W.DEV IH SCH (08:05)
[2017-08-20] MEDS: DOCUSATE SODIUM 100 MG CAPSULE PO SCH (08:05)
[2017-08-20 08:06] LABS: VIT D, 25-HYDROXY 37.7 ng/mL (30.0-100.0)
[2017-08-20] MEDS ORDERED: MUPIROCIN 2% OINT 22 GM TUBE NS SCH (09:15)
[2017-08-20] MEDS: INSULIN REGULAR, HUMAN 300 UNIT/3 ML VIAL SQ PRN ×2 (10:48→16:26)
[2017-08-20 11:30] VITALS: BP 100/53
[2017-08-20] MEDS: CLONAZEPAM 1 MG TABLET PO PRN (13:55)
[2017-08-20 15:30] VITALS: BP 111/59
[2017-08-20] MEDS ORDERED: METH4TAB3 PO (15:37)
[2017-08-20] MEDS ORDERED: LEVO500T2 PO (15:37)
== END 2017-08-20 16:50 | disposition home health service (06) | DRG 190 ==
LOC: ER 20:19 → TELE 23:05 → MED 08-18 17:30
PROVIDERS: ADMIT Internal Medicine; ATTEND Internal Medicine
DX: J44.0 Chronic obstructive pulmonary disease with (acute) lower respiratory infection (principal); J96.21 Acute and chronic respiratory failure with hypoxia; F33.3 Major depressive disorder, recurrent, severe with psychotic symptoms; I48.0 Paroxysmal atrial fibrillation; E83.52 Hypercalcemia; E11.9 Type 2 diabetes mellitus without complications; B96.89 Other specified bacterial agents as the cause of diseases classified elsewhere; I50.32 Chronic diastolic (congestive) heart failure; I11.0 Hypertensive heart disease with heart failure; G30.9 Alzheimer's disease, unspecified; F02.80 Dementia in other diseases classified elsewhere, unspecified severity, without behavioral disturbance, psychotic disturbance, mood disturbance, and anxiety; J20.8 Acute bronchitis due to other specified organisms; J44.1 Chronic obstructive pulmonary disease with (acute) exacerbation; K21.9 Gastro-esophageal reflux disease without esophagitis; F41.9 Anxiety disorder, unspecified; Z79.899 Other long term (current) drug therapy; Z87.891 Personal history of nicotine dependence; Z96.651 Presence of right artificial knee joint; M19.90 Unspecified osteoarthritis, unspecified site; K56.41 Fecal impaction; I25.10 Atherosclerotic heart disease of native coronary artery without angina pectoris; E78.5 Hyperlipidemia, unspecified; E03.9 Hypothyroidism, unspecified
CPT/HCPCS: 36415; 70030-TC; 71045; 71250; 82306; 82652; 83605; 83735; 83970; 84100; 85025; 85730; 87040; 87400; 93005; 94640; 94664; A4663; J1200; J1815; J1956; J2060; J2270; J2358; J2920; J2930; J3475; J3590; J7030; J7040

== ENCOUNTER 2018-01-15 06:49 | Inpatient (IN) | payer MEDICARE ==
[~2018-01-15] VITALS: Ht 175.3 cm; Wt 83.9 kg
--- NOTE | 2018-01-15 02:20 | NUR ---
11:15am admitted pt to mental health unit from ER per wheelchair, pt is on 5150 for gravely disabled due to anxiety and inability to breath, pt unable to plan for her care. Pt alert and oriented x3, pt is anxious, complain of SOB even with O2 at 2L per min, no evidence of SOB seen, on 1:1 sitter for safety, notified Dr. Patiño and Dr. Molina for admission with orders. Medication started, breathing tx administered by RT.
[~2018-01-15 06:49] MED LIST changes: +CLON0.5T12 PO; -CLON0.5T4 PO; +LEVO500T2 PO; +METH4TAB3 PO; -TRIA15CR2 TP
--- NOTE | 2018-01-15 06:58 | NUR ---
Dr. Ortega at bedside for MSE.
[2018-01-15] MEDS ORDERED: ALBUTEROL SULFATE 2.5 MG/3 ML NEBU NEB ONE ×2 (07:00→13:15)
[2018-01-15] MEDS ORDERED: IPRATROPIUM BROMIDE 0.5 MG/2.5 ML NEBU NEB ONE ×2 (07:00→13:15)
[2018-01-15] MEDS ORDERED: LORAZEPAM 2 MG/1 ML VIAL IV ONE ×3 (07:00→10:15)
[2018-01-15] MEDS ORDERED: CODE118S4 PO (07:06)
[2018-01-15] MEDS ORDERED: CHOL200074 PO (07:06)
[2018-01-15] MEDS ORDERED: BISM-126 PO (07:06)
[2018-01-15] MEDS ORDERED: CLOT15CR5 TP (07:06)
[2018-01-15] MEDS ORDERED: ZOLP5TAB8 PO (07:06)
[2018-01-15] MEDS ORDERED: LORA1TAB PO (07:06)
[2018-01-15] MEDS ORDERED: QUET50TA PO (07:06)
[2018-01-15] MEDS ORDERED: LORAZEPAM 2 MG/1 ML VIAL ONE ×3 (07:17→10:15)
--- NOTE | 2018-01-15 07:17 | NUR ---
Respiratory at bedside.
--- NOTE | 2018-01-15 07:17 | NUR ---
Xray at bedside.
--- NOTE | 2018-01-15 07:17 | NUR ---
SBAR report to Kenton HOSKINS.
[2018-01-15] MEDS ORDERED: IPRATROPIUM BROMIDE 0.5 MG/2.5 ML NEBU ONE (07:25)
[2018-01-15 07:29] LABS: CARBON DIOXIDE 25 mmol/L (21-32); CHLORIDE 105 mmol/L (98-107); CREATININE 0.7 mg/dL (0.6-1.3); GLUCOSE 98 mg/dL (74-106); POTASSIUM 4.5 mmol/L (3.5-5.1); UREA NITROGEN, BLOOD 19 mg/dL (7-18)
[2018-01-15 07:32] LABS: BASOPHILS % (AUTO) 0.2 % (0.0-2.0); EOSINOPHILS # (AUTO) 0.9 K/uL (0.0-0.7); EOSINOPHILS % (AUTO) 12.5 % (0.0-7.0); HEMATOCRIT 31.7 % (31.2-41.9); HEMOGLOBIN 10.7 g/dL (10.9-14.3); LYMPHOCYTES # (AUTO) 1.1 K/uL (20.0-40.0); LYMPHOCYTES % (AUTO) 14.6 % (20.5-51.5); MEAN CORPUSCULAR HEMOGLOBIN 30.4 uug (24.7-32.8); MEAN CORPUSCULAR HGB CONC 34 g/dL (32.3-35.6); MEAN CORPUSCULAR VOLUME 89.7 fL (75.5-95.3); MONOCYTES # (AUTO) 0.5 K/uL (2.0-10.0); MONOCYTES % (AUTO) 6.8 % (0.0-11.0); NEUTROPHILS # (AUTO) 4.8 K/uL (1.8-8.9); NEUTROPHILS % (AUTO) 65.9 % (38.5-71.5); PLATELET COUNT (AUTO) 291 K/uL (179-408); RED BLOOD CELL COUNT(AUTO) 3.54 MIL/uL (3.63-4.92); WHITE BLOOD COUNT (AUTO) 7.3 K/uL (3.8-11.8)
[2018-01-15 07:44] LABS: ALANINE AMINOTRANSFERASE 41 U/L (14-59); ALKALINE PHOSPHATASE 123 U/L (50-136); ASPARTATE AMINOTRANSFERASE 21 U/L (15-37); BILIRUBIN,DIRECT 0.1 mg/dL (0.0-0.2); BILIRUBIN,TOTAL 0.2 mg/dL (0.2-1.0); TOTAL PROTEIN, SERUM 7.1 g/dL (6.4-8.2)
[2018-01-15] MEDS ORDERED: diphenhydrAMINE 50 MG/1 ML VIAL IV ONE (10:45)
[2018-01-15] MEDS ORDERED: diphenhydrAMINE 50 MG/1 ML VIAL ONE (10:50)
--- NOTE | 2018-01-15 11:21 | NUR ---
pt was evaluated by dr carr. pt was evaluated by anne marie whipple. pt was transfered to room 140A. report was given to mhu rn.
[2018-01-15] MEDS ORDERED: MAG HYDROX/AL HYDROX/SIMETH 30 ML LIQUID UDC PO PRN (12:45)
[2018-01-15] MEDS ORDERED: MAGNESIUM HYDROXIDE 30 ML LIQUID UDC PO PRN (12:45)
[2018-01-15 12:53] VITALS: BP 159/71
[2018-01-15] MEDS: LORAZEPAM 1 MG TABLET PO PRN ×2 (13:04→19:45)
[2018-01-15] MEDS ORDERED: PROMETHAZINE/CODEINE 5 ML UDC PO PRN ×2 (13:30→16:00)
[2018-01-15] MEDS ORDERED: CLOTRIMAZOLE/BETAMET DIPROP CREAM 15 GM TUBE TP PRN ×2 (13:30→15:00)
--- NOTE | 2018-01-15 13:51 | NUR ---
GPS/RN- contacted Dr Ayon office [phone]. spoke Sheila at office verified Gabapentin medication is for Diabetic Neuropathy.
[2018-01-15 15:00] VITALS: BP 137/85
[2018-01-15] MEDS: DILTIAZEM HCL CD 120 MG CAP.SR.24H PO SCH (15:29)
[2018-01-15] MEDS: GABAPENTIN 300 MG CAPSULE PO SCH (17:16)
[2018-01-15] MEDS: FAMOTIDINE 20 MG TABLET PO SCH (17:17)
[2018-01-15] MEDS: METFORMIN HCL 500 MG TABLET PO SCH (17:17)
[2018-01-15] MEDS: ALBUTEROL SULFATE 1.25 MG/3 ML NEBU NEB PRN (19:47)
[2018-01-15] MEDS: IPRATROPIUM BROMIDE 0.5 MG/2.5 ML NEBU NEB PRN (19:47)
[2018-01-15] MEDS: DOCUSATE SODIUM 100 MG CAPSULE PO SCH (20:00)
[2018-01-15] MEDS: ATORVASTATIN 10 MG TABLET PO SCH (20:01)
[2018-01-15] MEDS: SERTRALINE HCL 50 MG TABLET PO SCH ×2 (21:00→21:42)
[2018-01-15] MEDS: CLONAZEPAM 0.5 MG TABLET PO SCH (21:00)
[2018-01-15] MEDS ORDERED: Medication Not On Formulary EA (Docusate Sodium 100 MG) PO SCH (21:00)
--- NOTE | 2018-01-15 22:00 | NUR ---
received to care, lying in bed, appearing anxious, sitter at side for safety, due to use of oxygen concentrator, with cords and tubes. c/o anxiety and shortness of breath. pt was given a respiratory treatment, and PRN ativan, at 1945. treatment alleviated her breathing issues, but she remained med seeking, requesting a sleeping pill, as soon as her treatment was concluded. she was then seen by Dr Molina, who started her on zoloft. as of 2199, she remains awake, and restless, attempting to get out of bed. sitter remains for safety. will continue to monitor closely.
[2018-01-15] MEDS: TEMAZEPAM 7.5 MG CAPSULE PO PRN (22:58)
--- NOTE | 2018-01-15 22:58 | NUR ---
remains awake, and restless. PRN restoril was given, at this time.
--- NOTE | 2018-01-15 23:45 | NUR ---
appears to be asleep. no distress noted.
[2018-01-16] MEDS: ALBUTEROL SULFATE 1.25 MG/3 ML NEBU NEB PRN ×5 (01:28→21:52)
[2018-01-16] MEDS: IPRATROPIUM BROMIDE 0.5 MG/2.5 ML NEBU NEB PRN ×5 (01:28→21:52)
[2018-01-16] MEDS: LORAZEPAM 1 MG TABLET PO PRN ×3 (01:29→21:07)
--- NOTE | 2018-01-16 01:30 | NUR ---
is now awake. c/o severe anxiety, and shortness of breath. PRN ativan was given, and she was given another respiratory treatment. sitter remains at her side. will continue to monitor closely.
--- NOTE | 2018-01-16 02:00 | NUR ---
appears to be asleep.
--- NOTE | 2018-01-16 06:20 | NUR ---
slept 6.5 hours total. is now awake. currently getting a breathing tx. remains anxious. sitter remains at side. will continue to monitor closely.
[2018-01-16 07:30] VITALS: BP 173/85
[2018-01-16] MEDS: DOCUSATE SODIUM 100 MG CAPSULE PO SCH ×2 (08:03→19:58)
[2018-01-16] MEDS: MULTIVITAMINS,THERAPEUTIC TABLET PO SCH (08:03)
[2018-01-16] MEDS: CHOLECALCIFEROL 1,000 UNIT TABLET PO SCH (08:03)
[2018-01-16] MEDS: GABAPENTIN 300 MG CAPSULE PO SCH ×2 (08:04→17:51)
[2018-01-16] MEDS: DILTIAZEM HCL CD 120 MG CAP.SR.24H PO SCH (08:04)
[2018-01-16] MEDS: METFORMIN HCL 500 MG TABLET PO SCH ×2 (08:04→17:51)
[2018-01-16] MEDS: SERTRALINE HCL 50 MG TABLET PO SCH (08:04)
[2018-01-16] MEDS: CLONAZEPAM 0.5 MG TABLET PO SCH ×2 (08:04→19:58)
[2018-01-16] MEDS: FAMOTIDINE 20 MG TABLET PO SCH ×2 (08:04→17:51)
[2018-01-16 08:05] VITALS: BP 151/78
[2018-01-16] MEDS ORDERED: Medication Not On Formulary EA (Multivitamins 1 EACH) PO SCH (09:00)
--- NOTE | 2018-01-16 11:52 | NUR ---
Initial Discharge Instructions: Patient currently resides at [facility]) [[address] [facility], [place] [address]; ]. Per pt, she would like to return there upon discharge. Spoke with Mariam at the facility who states the patient can go back when ready. PADMINI will speak with patient's son/DPOA, Jovany Garcia ([phone]). PADMINI will continue to collaborate with pt, family, and MD regarding most appropriate discharge plans for this patient. SW will form a safe and proper discharge plan.
[2018-01-16] MEDS: ACETAMINOPHEN 325 MG TABLET PO PRN (12:32)
[2018-01-16] MEDS: ATORVASTATIN 10 MG TABLET PO SCH (19:58)
--- NOTE | 2018-01-16 20:00 | NUR ---
pt transferred to [facility] overflow, room 220. transferred via wheel chair, in stable condition.
--- NOTE | 2018-01-16 21:30 | NUR ---
ASSUMING CARE OF PT IN GP OVERFLOW. RECEIVED REPORT FROM BIA MARTE. PT IN BED RECEIVING BREATHING TREATMENT AT THIS TIME. PT IS VERY ANXIOUS. DENIES PAIN, C/P, N/V. PT IS CURRENTLY ON A 5150 HOLD FOR GD. 5150 EXPIRES ON 01/18 @ 1015. BED IN LOW AND LOCKED POSITION WITH BILATERAL SIDERAILS UP. ALL CORDS REMOVED FROM PT'S ROOM FOR SAFETY. SITTER AT BEDSIDE.
[2018-01-16] MEDS: TEMAZEPAM 7.5 MG CAPSULE PO PRN (23:07)
[2018-01-17] VITALS: BP 135/73
[2018-01-17] MEDS: ALBUTEROL SULFATE 1.25 MG/3 ML NEBU NEB PRN ×6 (01:50→23:37)
[2018-01-17] MEDS: IPRATROPIUM BROMIDE 0.5 MG/2.5 ML NEBU NEB PRN ×6 (01:51→23:37)
--- NOTE | 2018-01-17 04:19 | NUR ---
PT IS VERY ANXIOUS, REQUESTS BREATHING TREATMENT EVERY HOUR. PT STATES SHE "CAN'T BREATHE", BUT IS NOT IN ANY RESPIRATORY DISTRESS. SPO2 97% ON O2 2 LPM VIA N/C, AND NON-LABORED BREATHING. PT TEACHING PROVIDED REGARDING COPD AND BREATHING TREATMENT, REINFORCEMENT REQUIRED.
--- NOTE | 2018-01-17 07:00 | NUR ---
RECEIVED PATIENT ON BED AWAKE, DISHEVELED IN APPEARANCE. PATIENT IS ANXIOUS AND AGITATED. 1:1 SITTER AT BEDSIDE FOR SAFETY NO SI NOTED AT THIS TIME. SAFETY PRECS OBSERVED AT ALL TIMES. WILL CONTINUE TO MONITOR CLOSELY.
[2018-01-17] MEDS: METFORMIN HCL 500 MG TABLET PO SCH ×2 (08:09→17:06)
[2018-01-17] MEDS: CLONAZEPAM 0.5 MG TABLET PO SCH ×2 (08:09→20:22)
[2018-01-17] MEDS: MULTIVITAMINS,THERAPEUTIC TABLET PO SCH (08:09)
[2018-01-17] MEDS: CHOLECALCIFEROL 1,000 UNIT TABLET PO SCH (08:09)
[2018-01-17] MEDS: SERTRALINE HCL 50 MG TABLET PO SCH (08:09)
[2018-01-17] MEDS: FAMOTIDINE 20 MG TABLET PO SCH ×2 (08:10→17:04)
[2018-01-17] MEDS: DILTIAZEM HCL CD 120 MG CAP.SR.24H PO SCH (08:10)
[2018-01-17] MEDS: DOCUSATE SODIUM 100 MG CAPSULE PO SCH ×2 (08:10→20:22)
[2018-01-17] MEDS: GABAPENTIN 300 MG CAPSULE PO SCH ×2 (08:10→17:04)
[2018-01-17] MEDS: LORAZEPAM 1 MG TABLET PO PRN (09:33)
--- NOTE | 2018-01-17 13:38 | NUR ---
SEEN AND SXAMINED BY DR CHRISTIE, PUT ON 14 DAY HOLD UP ON 01/24/2018
[2018-01-17] MEDS: HYDROXYZINE PAMOATE 25 MG CAPSULE PO PRN (15:36)
[2018-01-17] MEDS: ACETAMINOPHEN 325 MG TABLET PO PRN (15:38)
[2018-01-17 17:04] VITALS: BP 122/73
[2018-01-17 18:00] VITALS: BP 152/94
--- NOTE | 2018-01-17 19:30 | NUR ---
RECEIVED SHIFT REPORT FROM AIDEE RENEE. PT RESTING IN BED. NO PAIN, C/P, SOB, N/V. PT IS ON 5250 STATUS FOR GD. SITTER AT BEDSIDE. BED IN LOW AND LOCKED POSITION WITH BILATERAL SIDERAILS UP. CALL LIGHT WITHIN REACH. WILL CONTINUE TO MONITOR.
[2018-01-17] MEDS: ATORVASTATIN 10 MG TABLET PO SCH (20:22)
[2018-01-17] MEDS: TEMAZEPAM 7.5 MG CAPSULE PO PRN (21:19)
[2018-01-17] MEDS ORDERED: CLONIDINE-TTS 1 PATCH TD SCH (21:45)
[2018-01-17 23:10] VITALS: BP 132/57
[2018-01-17] MEDS ORDERED: CLONIDINE-TTS 1 PATCH TD ONE (23:28)
[2018-01-18] MEDS: IPRATROPIUM BROMIDE 0.5 MG/2.5 ML NEBU NEB PRN ×6 (02:47→23:05)
[2018-01-18] MEDS: ALBUTEROL SULFATE 1.25 MG/3 ML NEBU NEB PRN ×6 (02:47→23:05)
[2018-01-18] MEDS: HYDROXYZINE PAMOATE 25 MG CAPSULE PO PRN ×2 (04:24→12:25)
[2018-01-18 04:44] VITALS: BP 135/83
--- NOTE | 2018-01-18 06:08 | NUR ---
PT AGITATED, ANXIOUS, AND REPEATEDLY COMING OUT ROOM TO NURSE'S STATION DEMANDING BREATHING TREATMENT. PT REORIENTED, ASSISTED BACK TO BED.
--- NOTE | 2018-01-18 07:16 | NUR ---
RECEIVED PATIENT ON BED AWAKE, DISHEVELED IN APPEARANCE. PATIENT ANXIOUS AND AGITATION NOTED. BREATHING TX CURRENTLY ONGOING 1:1 SITTER AT BEDSIDE FOR SAFETY NO SI NOTED AT THIS TIME. SAFETY PRECS OBSERVED AT ALL TIMES. WILL CONTINUE TO MONITOR CLOSELY
[2018-01-18 07:47] VITALS: BP 157/72
[2018-01-18] MEDS: CLONAZEPAM 0.5 MG TABLET PO SCH ×2 (08:07→20:02)
[2018-01-18] MEDS: FAMOTIDINE 20 MG TABLET PO SCH ×2 (08:08→17:01)
[2018-01-18] MEDS: DOCUSATE SODIUM 100 MG CAPSULE PO SCH ×2 (08:08→20:02)
[2018-01-18] MEDS: CHOLECALCIFEROL 1,000 UNIT TABLET PO SCH (08:08)
[2018-01-18] MEDS: DILTIAZEM HCL CD 120 MG CAP.SR.24H PO SCH (08:08)
[2018-01-18] MEDS: SERTRALINE HCL 50 MG TABLET PO SCH (08:08)
[2018-01-18] MEDS: GABAPENTIN 300 MG CAPSULE PO SCH ×2 (08:08→17:01)
[2018-01-18] MEDS: METFORMIN HCL 500 MG TABLET PO SCH ×2 (08:08→17:01)
[2018-01-18] MEDS: MULTIVITAMINS,THERAPEUTIC TABLET PO SCH (08:08)
[2018-01-18 11:19] VITALS: BP 115/71
[2018-01-18 15:55] VITALS: BP 140/76
[2018-01-18 19:00] VITALS: BP 117/49
[2018-01-18] MEDS: ATORVASTATIN 10 MG TABLET PO SCH (20:02)
--- NOTE | 2018-01-18 21:00 | NUR ---
Nursing Note: Pt attempting to remove O2. Redirected as needed and explained need for oxygen. Will monitor for compliance. No complaints of SOB at this time. All due medications administered as ordered with no adverse reactions noted. Pt constantly requesting for assistance from staff and exhibiting manipulative behavior. Bed in locked position and low. Call light in reach at all times. Pt requires 1:1 sitter and is on hold. Will continue to monitor.
--- NOTE | 2018-01-19 00:36 | NUR ---
Nursing note: Pt currently resting in bed. No complaints of SOB at this time. Breathing treatment administered by RT and effective in reducing complaints of SOB. Pt confused and unable to differentiate the difference between breathing treatment and continuous O2 supplementation. Attempted to explain to pt. Pt unable to understand. Bed in low and locked position. Call light in reach. Will continue to monitor.
[2018-01-19] MEDS: IPRATROPIUM BROMIDE 0.5 MG/2.5 ML NEBU NEB PRN ×6 (03:14→23:06)
[2018-01-19] MEDS: ALBUTEROL SULFATE 1.25 MG/3 ML NEBU NEB PRN ×6 (03:14→23:06)
[2018-01-19 04:00] VITALS: BP 105/47
--- NOTE | 2018-01-19 06:59 | NUR ---
Nursing note: Pt requesting to have Breathing Treatment. RT notified. Pt continues to have 1:1 sitter. Bed in low and locked position. Call light in reach. Continue to monitor.
[2018-01-19] MEDS: CLONAZEPAM 0.5 MG TABLET PO SCH ×2 (08:03→21:05)
[2018-01-19] MEDS: MULTIVITAMINS,THERAPEUTIC TABLET PO SCH (08:03)
[2018-01-19] MEDS: METFORMIN HCL 500 MG TABLET PO SCH ×2 (08:03→18:04)
[2018-01-19] MEDS: SERTRALINE HCL 50 MG TABLET PO SCH (08:04)
[2018-01-19] MEDS: FAMOTIDINE 20 MG TABLET PO SCH ×2 (08:04→16:25)
[2018-01-19] MEDS: DOCUSATE SODIUM 100 MG CAPSULE PO SCH ×2 (08:04→21:05)
[2018-01-19] MEDS: GABAPENTIN 300 MG CAPSULE PO SCH ×2 (08:06→16:25)
[2018-01-19] MEDS: DILTIAZEM HCL CD 120 MG CAP.SR.24H PO SCH (08:06)
[2018-01-19] MEDS: CHOLECALCIFEROL 1,000 UNIT TABLET PO SCH (08:19)
[2018-01-19] MEDS ORDERED: GUAIFENESIN/DEXTROMETHORPHAN 5 ML UDC PO PRN (09:30)
[2018-01-19] MEDS ORDERED: BENZOCAINE/MENTH/CETYLPYRD LOZENGE MM PRN (09:30)
[2018-01-19] MEDS: HYDROXYZINE PAMOATE 25 MG CAPSULE PO PRN ×2 (09:48→16:25)
[2018-01-19 15:41] VITALS: BP 126/60
--- NOTE | 2018-01-19 16:08 | NUR ---
Firearms Report: Log Buyer completed and submitted [employer] Report on 01/19/18 for 5250 Grave Disability certification.
--- NOTE | 2018-01-19 18:19 | NUR ---
PT ANXIETY MANAGED WITH DISTRACTION, AND THERAPEUTIC COMMUNICATION AND MEDS. PT AT THIS TIME IS RESTING IN BED WITH NO SIGNS OF ACUTE DISTRESS. PT IS COMPLIANT WITH BREATHING TREATMENTS. PT EDUCATED ON MANAGING ANXIETY. PT NEEDS TO BE REDIRECTED AND REMINDED TO USE ANXIETY REDUCING TECHNIQUES. CONTINUE TO MONITOR PT.
[2018-01-19 20:00] VITALS: BP 90/44
[2018-01-19] MEDS: ATORVASTATIN 10 MG TABLET PO SCH (21:05)
--- NOTE | 2018-01-19 21:57 | NUR ---
Nursing Note: Pt resting comfortably in bed. No complaints of SOB at this time. All due medications administered as ordered with no adverse reactions noted. Pt not constantly requesting for assistance from staff. Appears to be in much better spirits thus far. Bed in locked position and low. Call light in reach at all times. Pt requires 1:1 sitter and is on hold. Will continue to monitor.
[2018-01-19] MEDS: TEMAZEPAM 7.5 MG CAPSULE PO PRN (23:59)
--- NOTE | 2018-01-20 00:35 | NUR ---
Nursing Note: Pt given medication for sleep. Pt appears to be sleeping now in no acute distress. Continues to have 1:1 supervision for 14 day hold. Bed in low and locked position. Pt compliant with order for continuous O2 via NC. Frequent visual checks. Call light in reach. Will continue to monitor.
[2018-01-20] MEDS: ALBUTEROL SULFATE 1.25 MG/3 ML NEBU NEB PRN ×6 (02:30→22:17)
[2018-01-20] MEDS: IPRATROPIUM BROMIDE 0.5 MG/2.5 ML NEBU NEB PRN ×6 (02:30→22:17)
[2018-01-20] MEDS: HYDROXYZINE PAMOATE 25 MG CAPSULE PO PRN ×4 (04:26→23:08)
--- NOTE | 2018-01-20 06:48 | NUR ---
Nursing Note: Pt resting comfortably in bed. Respirations even and unlabored. Complaint with O2 via NC today. Pt constantly requesting breathing treatments. Will continue to monitor. Bed in low and locked position. Call light in reach. Continue to monitor.
[2018-01-20 08:00] VITALS: BP 132/81
[2018-01-20] MEDS: MULTIVITAMINS,THERAPEUTIC TABLET PO SCH (08:05)
[2018-01-20] MEDS: SERTRALINE HCL 100 MG TABLET PO SCH (08:05)
[2018-01-20] MEDS: CLONAZEPAM 0.5 MG TABLET PO SCH ×2 (08:05→20:07)
[2018-01-20] MEDS: CHOLECALCIFEROL 1,000 UNIT TABLET PO SCH (08:05)
[2018-01-20] MEDS: GABAPENTIN 300 MG CAPSULE PO SCH ×2 (08:05→16:37)
[2018-01-20] MEDS: METFORMIN HCL 500 MG TABLET PO SCH ×2 (08:05→18:40)
[2018-01-20] MEDS: FAMOTIDINE 20 MG TABLET PO SCH ×2 (08:05→16:38)
[2018-01-20] MEDS: DOCUSATE SODIUM 100 MG CAPSULE PO SCH ×2 (08:05→20:07)
[2018-01-20] MEDS: DILTIAZEM HCL CD 120 MG CAP.SR.24H PO SCH (08:05)
[2018-01-20] MEDS: HYDROCODONE/APAP 5-325MG TABLET PO PRN ×2 (10:29→16:43)
[2018-01-20 15:46] VITALS: BP 118/63
--- NOTE | 2018-01-20 19:20 | NUR ---
RECEIVED PATIENT SITTING AT THE SIDE OF THE BED. AAOX4. IN NO ACUTE DISTRESS. REQUESTING TO HAVE BREATHING TREATMENT. RT INFORMED. 1:1 SITTER ON SITE. SAFETY MEASURE INITIATED AND CALL HAMMOND WITHIN REACH.
--- NOTE | 2018-01-20 19:47 | NUR ---
PT HAS NO SIGNS OF ACUTE DISTRESS AT THIS TIME. SHIFT REPORT GIVEN TO PRICING MANAGER.
[2018-01-20 20:00] VITALS: BP 141/81
[2018-01-20] MEDS: ATORVASTATIN 10 MG TABLET PO SCH (20:07)
[2018-01-20] MEDS: TEMAZEPAM 7.5 MG CAPSULE PO PRN (22:38)
[2018-01-21] MEDS: HYDROCODONE/APAP 5-325MG TABLET PO PRN (01:08)
[2018-01-21] MEDS: ALBUTEROL SULFATE 1.25 MG/3 ML NEBU NEB PRN ×3 (03:26→10:34)
[2018-01-21] MEDS: IPRATROPIUM BROMIDE 0.5 MG/2.5 ML NEBU NEB PRN ×3 (03:26→10:34)
[2018-01-21] MEDS: ACETAMINOPHEN 325 MG TABLET PO PRN (04:47)
--- NOTE | 2018-01-21 06:22 | NUR ---
AAOX4. IN NO ACUTE DISTRESS.WITH OFF AND ON ANXIETY/RESTLESSNESS. VISTARIL PRN GIVEN PER ORDER. ON O2 AT 3LPM VIA NC IN PLACE. 1:1 SITTER ON SITE. SAFETY MEASURE MAINTAINED AND CALL HAMMOND WITHIN REACH.
[2018-01-21 06:37] LABS: BASOPHILS % (AUTO) 0.1 % (0.0-2.0); EOSINOPHILS # (AUTO) 1.2 K/uL (0.0-0.7); EOSINOPHILS % (AUTO) 15.6 % (0.0-7.0); HEMATOCRIT 32.7 % (31.2-41.9); LYMPHOCYTES # (AUTO) 1.5 K/uL (20.0-40.0); MEAN CORPUSCULAR HEMOGLOBIN 30.1 uug (24.7-32.8); MEAN CORPUSCULAR HGB CONC 34 g/dL (32.3-35.6); MEAN CORPUSCULAR VOLUME 89.6 fL (75.5-95.3); MONOCYTES # (AUTO) 0.6 K/uL (2.0-10.0); MONOCYTES % (AUTO) 8.1 % (0.0-11.0); NEUTROPHILS # (AUTO) 4.2 K/uL (1.8-8.9); NEUTROPHILS % (AUTO) 56.2 % (38.5-71.5); PLATELET COUNT (AUTO) 280 K/uL (179-408); RED BLOOD CELL COUNT(AUTO) 3.65 MIL/uL (3.63-4.92); WHITE BLOOD COUNT (AUTO) 7.5 K/uL (3.8-11.8)
[2018-01-21 06:54] LABS: CARBON DIOXIDE 29 mmol/L (21-32); CHLORIDE 103 mmol/L (98-107); CREATININE 0.7 mg/dL (0.6-1.3); GLUCOSE 99 mg/dL (74-106); MAGNESIUM 1.8 mg/dL (1.8-2.4); PHOSPHOROUS 3.3 mg/dL (2.5-4.9); POTASSIUM 4.2 mmol/L (3.5-5.1); UREA NITROGEN, BLOOD 17 mg/dL (7-18)
[2018-01-21 07:45] VITALS: BP 139/69
[2018-01-21 08:03] VITALS: BP 139/69
[2018-01-21] MEDS: FAMOTIDINE 20 MG TABLET PO SCH (08:03)
[2018-01-21] MEDS: GABAPENTIN 300 MG CAPSULE PO SCH (08:03)
[2018-01-21] MEDS: DILTIAZEM HCL CD 120 MG CAP.SR.24H PO SCH (08:03)
[2018-01-21] MEDS: METFORMIN HCL 500 MG TABLET PO SCH (08:03)
[2018-01-21] MEDS: CHOLECALCIFEROL 1,000 UNIT TABLET PO SCH (08:03)
[2018-01-21] MEDS: MULTIVITAMINS,THERAPEUTIC TABLET PO SCH (08:03)
[2018-01-21] MEDS: CLONAZEPAM 0.5 MG TABLET PO SCH (08:03)
[2018-01-21] MEDS: SERTRALINE HCL 100 MG TABLET PO SCH (08:03)
[2018-01-21] MEDS: DOCUSATE SODIUM 100 MG CAPSULE PO SCH (08:05)
--- NOTE | 2018-01-21 08:31 | NUR ---
Discharge Note: Patient will be discharged back to [facility] [[address], [place] [address]; [phone]] via private transportation between 10 and 11am. Spoke with Lety at the facility who has agreed to arrange transportation, and reports they are ready to accept the patient back today. Patient is aware and agreeable with discharge plans. Patient will continue to follow up with her Primary Care Physician, Dr. Rod Nguyen [[address], [place] [address]; [phone]]. Patient was provided with a list of Medicare-accepting Psychiatrists in her area. Patient was provided with a brief substance abuse intervention and referred to [facility] , [facility] , and [facility] . Patient will continue to be followed by [facility] for outpatient care as well.
[2018-01-21] MEDS ORDERED: FLUTICASONE/VILANTEROL 1 EACH BLST.W.DEV INH SCH (09:00)
[2018-01-21] MEDS ORDERED: ASPIRIN EC 81 MG TABLET.DR PO SCH (09:00)
--- NOTE | 2018-01-21 12:01 | NUR ---
D/C ORDERS RECEIVED NOTED AND CARRIED OUT,D/C INSTRUCTION AND EDUCATION GIVEN TO THE PT .PT LEFT THE FACILITY VIA PRIVATE CAR IN STABLE CONDITION.
== END 2018-01-21 12:00 | DRG 881 ==
LOC: ER 06:51 → GPS 10:48 → MED 01-16 20:30 → GPSOV 01-16 20:45
PROVIDERS: ADMIT Psychiatry & Neurology Psychiatry; ATTEND Psychiatry & Neurology Psychiatry
DX: F32.9 Major depressive disorder, single episode, unspecified (principal); F02.80 Dementia in other diseases classified elsewhere, unspecified severity, without behavioral disturbance, psychotic disturbance, mood disturbance, and anxiety; J44.1 Chronic obstructive pulmonary disease with (acute) exacerbation; I11.0 Hypertensive heart disease with heart failure; J96.11 Chronic respiratory failure with hypoxia; D68.59 Other primary thrombophilia; I50.32 Chronic diastolic (congestive) heart failure; F41.9 Anxiety disorder, unspecified; Z99.81 Dependence on supplemental oxygen; Z96.651 Presence of right artificial knee joint; Z88.5 Allergy status to narcotic agent; Z88.8 Allergy status to other drugs, medicaments and biological substances; E78.5 Hyperlipidemia, unspecified; E03.9 Hypothyroidism, unspecified; I48.91 Unspecified atrial fibrillation; Z79.84 Long term (current) use of oral hypoglycemic drugs; Z79.899 Other long term (current) drug therapy; J20.9 Acute bronchitis, unspecified; K59.00 Constipation, unspecified; E11.9 Type 2 diabetes mellitus without complications; E83.52 Hypercalcemia; Z96.611 Presence of right artificial shoulder joint; K42.9 Umbilical hernia without obstruction or gangrene; K21.9 Gastro-esophageal reflux disease without esophagitis; I25.10 Atherosclerotic heart disease of native coronary artery without angina pectoris; G30.9 Alzheimer's disease, unspecified; E66.9 Obesity, unspecified; Z68.27 Body mass index [BMI] 27.0-27.9, adult
CPT/HCPCS: 36415; 70030-TC; 71045; 82306; 83550; 83735; 84100; 84443; 85025; 85730; 93005; 94640; 94664; A4663; J1200; J2060; J3590

== ENCOUNTER 2018-01-31 04:57 | Emergency (ER) | payer MEDICARE ==
[~2018-01-31] VITALS: Ht 175.3 cm; Wt 68.0 kg
[~2018-01-31 04:57] MED LIST changes: -BISA10SU12 RC; +BISM-126 PO; -BLOO-140 IN; -CHOL10002 PO; +CHOL200074 PO; -CLON0.5T12 PO; -CLON1PAT TD; +CLOT15CR5 TP; +CODE118S4 PO; -DEXT50VI3 IV; -FLUT1BLS IH; -LEVO500T2 PO; +LORA1TAB PO; -METH4TAB3 PO; +ZOLP5TAB8 PO
--- NOTE | 2018-01-31 05:02 | NUR ---
PT BIB RA FROM SNF FOR C/O SOB. PT HAS HX OF COPD. BREATH SOUNDS CURRENTLY EVEN, UNABORED, AND CLEAR TO ASCULTATION BILATERALLY. NO SIGNS OF DISTRESS NOTED.
--- NOTE | 2018-01-31 05:11 | NUR ---
DR MITA CAN MD AT BEDSIDE FOR MSE.
[2018-01-31] MEDS ORDERED: GUAIFENESIN/DEXTROMETHORPHAN 5 ML UDC PO ONE (05:15)
[2018-01-31] MEDS ORDERED: BENZ1LOZ58 MM (05:27)
[2018-01-31] MEDS ORDERED: CLON0.5T12 PO (05:27)
[2018-01-31] MEDS ORDERED: ASPI81TA31 PO (05:27)
[2018-01-31] MEDS ORDERED: SERT100T PO (05:27)
[2018-01-31] MEDS ORDERED: GUAIFENESIN/DEXTROMETHORPHAN 5 ML UDC ONE (05:30)
--- NOTE | 2018-01-31 06:35 | NUR ---
Patient discharged to home in stable conditon via [facility]. Written and verbal after care instructions given. Patient verbalizes understanding of instructions. Pt took all persoanal belongings.
[2018-01-31 06:38] VITALS: BP 142/87
== END 2018-01-31 06:39 | disposition home or self-care (01) ==
LOC: ER 05:01
DX: J44.1 Chronic obstructive pulmonary disease with (acute) exacerbation (principal); I48.91 Unspecified atrial fibrillation; K21.9 Gastro-esophageal reflux disease without esophagitis; E11.9 Type 2 diabetes mellitus without complications; Z87.891 Personal history of nicotine dependence; Z88.5 Allergy status to narcotic agent; Z88.8 Allergy status to other drugs, medicaments and biological substances
CPT/HCPCS: 93005; A4663

== ENCOUNTER 2018-02-06 17:17 | Emergency (ER) | payer MEDICARE ==
[~2018-02-06] VITALS: Ht 175.3 cm; Wt 68.0 kg
[~2018-02-06 17:17] MED LIST changes: +ASPI81TA31 PO; +BENZ1LOZ58 MM; +CLON0.5T12 PO; -CLOT15CR5 TP; -CODE118S4 PO; -ESCI10TA PO; -LORA1TAB PO; -QUET50TA PO; +SERT100T PO
--- NOTE | 2018-02-06 17:21 | NUR ---
pt. seen and examine by upon arrival.
[2018-02-06] MEDS ORDERED: methylPREDNISolone SOD SUCC 125 MG/2 ML VIAL IV ONE (17:30)
[2018-02-06] MEDS ORDERED: diphenhydrAMINE 50 MG/1 ML VIAL IV ONE (17:30)
[2018-02-06] MEDS ORDERED: FAMOTIDINE. 20 MG/2 ML VIAL IV ONE ×2 (17:30→17:41)
[2018-02-06] MEDS ORDERED: diphenhydrAMINE 50 MG/1 ML VIAL ONE (17:39)
[2018-02-06] MEDS ORDERED: FAMOTIDINE 20 MG TABLET ONE (17:40)
[2018-02-06] MEDS ORDERED: methylPREDNISolone SOD SUCC 125 MG/2 ML VIAL ONE (17:40)
[2018-02-06] MEDS ORDERED: LORA1TAB PO (17:44)
[2018-02-06] MEDS ORDERED: MUCINEX PO (17:44)
[2018-02-06] MEDS ORDERED: QUET50TA PO (17:44)
[2018-02-06] MEDS ORDERED: FLUT1BLS IH (17:44)
[2018-02-06] MEDS ORDERED: IPRA4AER IH (17:44)
[2018-02-06] MEDS ORDERED: QUET25TA PO (17:44)
[2018-02-06] MEDS ORDERED: ALBU18HF2 IH (17:44)
[2018-02-06] MEDS ORDERED: ALBU8.5H8 IH (17:44)
[2018-02-06] MEDS ORDERED: ALBU1.25 NEB (17:44)
[2018-02-06 17:47] LABS: BASOPHILS % (AUTO) 0.2 % (0.0-2.0); EOSINOPHILS % (AUTO) 0.3 % (0.0-7.0); HEMATOCRIT 33.1 % (31.2-41.9); HEMOGLOBIN 11.2 g/dL (10.9-14.3); LYMPHOCYTES # (AUTO) 0.9 K/uL (20.0-40.0); LYMPHOCYTES % (AUTO) 7.4 % (20.5-51.5); MEAN CORPUSCULAR HEMOGLOBIN 30.7 uug (24.7-32.8); MEAN CORPUSCULAR HGB CONC 34 g/dL (32.3-35.6); MEAN CORPUSCULAR VOLUME 90.9 fL (75.5-95.3); MONOCYTES # (AUTO) 0.8 K/uL (2.0-10.0); MONOCYTES % (AUTO) 6.3 % (0.0-11.0); NEUTROPHILS # (AUTO) 10.3 K/uL (1.8-8.9); NEUTROPHILS % (AUTO) 85.8 % (38.5-71.5); PLATELET COUNT (AUTO) 303 K/uL (179-408); RED BLOOD CELL COUNT(AUTO) 3.65 MIL/uL (3.63-4.92)
[2018-02-06 17:50] LABS: CARBON DIOXIDE 24 mmol/L (21-32); CREATININE 0.9 mg/dL (0.6-1.3); GLUCOSE 109 mg/dL (74-106); UREA NITROGEN, BLOOD 20 mg/dL (7-18)
[2018-02-06 17:55] LABS: CHLORIDE 98 mmol/L (98-107)
--- NOTE | 2018-02-06 17:55 | NUR ---
Patient medicated but remains anxious, restless. Itchiness improving.
[2018-02-06 17:58] LABS: ALKALINE PHOSPHATASE 140 U/L (50-136); ASPARTATE AMINOTRANSFERASE 15 U/L (15-37); BILIRUBIN,DIRECT 0.1 mg/dL (0.0-0.2); BILIRUBIN,TOTAL 0.4 mg/dL (0.1-1.0)
[2018-02-06 17:59] LABS: ALANINE AMINOTRANSFERASE 19 U/L (14-59); TOTAL PROTEIN, SERUM 7.4 g/dL (6.4-8.2)
--- NOTE | 2018-02-06 18:05 | NUR ---
Dr. Gonzalez at bedside.
[2018-02-06] MEDS ORDERED: LORAZEPAM 2 MG/1 ML VIAL IV ONE (18:15)
[2018-02-06] MEDS ORDERED: LORAZEPAM 2 MG/1 ML VIAL ONE (18:27)
--- NOTE | 2018-02-06 18:32 | NUR ---
Ambulance services called at this time spoke with Yuli report given including insurance policy number and that pt. needs to be taken back to [facility]. ETA of 1944. Reference (trip) number [id number].
--- NOTE | 2018-02-06 18:46 | NUR ---
DCD instruction and prescriptionprovided to patient, and documentation place in an envelope to taken with her upon discharge. Addendum: 02/06/18 at 1847 by MANE IV line left in place care will be endorse to incoming shift to [facility] with plan of care.
--- NOTE | 2018-02-06 19:09 | NUR ---
Report given to incoming carolynn Sanchez.
--- NOTE | 2018-02-06 19:11 | NUR ---
REPORT TAKEN FROM DAY SHIFT RN. ASSUMING CARE AT THIS TIME.
--- NOTE | 2018-02-06 20:00 | NUR ---
Patient discharged to home in stable conditon via [facility]. Written and verbal after care instructions given. Patient verbalizes understanding of instructions. IV removed w/ catheter intact. Pressure applied, no bleeding noted at site. Pt took all personal belongings.
[2018-02-06 20:16] VITALS: BP 132/59
== END 2018-02-06 20:17 | disposition home or self-care (01) ==
LOC: ER 17:18
DX: L25.9 Unspecified contact dermatitis, unspecified cause (principal); I48.91 Unspecified atrial fibrillation; J45.909 Unspecified asthma, uncomplicated; K21.9 Gastro-esophageal reflux disease without esophagitis; E11.9 Type 2 diabetes mellitus without complications; F17.200 Nicotine dependence, unspecified, uncomplicated; Z88.5 Allergy status to narcotic agent; Z88.8 Allergy status to other drugs, medicaments and biological substances
CPT/HCPCS: 36415; 80048; 80076; 84484; 85025; 96374; 96375; 99284; A4663; J1200; J2060; J2930; J3490; 70030-TC

== ENCOUNTER 2018-03-02 07:06 | Emergency (ER) | payer MEDICARE ==
[~2018-03-02] VITALS: Ht 175.3 cm; Wt 68.0 kg
[~2018-03-02 07:06] MED LIST changes: +ALBU18HF2 IH; +ALBU8.5H8 IH; +FLUT1BLS IH; +IPRA4AER IH; +LORA1TAB PO; +METF-440 PO; -METF500T6 PO; +MUCINEX PO; +QUET25TA PO; +QUET50TA PO
[2018-03-02] MEDS ORDERED: IPRATROPIUM BROMIDE 0.5 MG/2.5 ML NEBU NEB ONE (07:15)
[2018-03-02] MEDS ORDERED: ALBUTEROL SULFATE 2.5 MG/3 ML NEBU NEB ONE (07:15)
[2018-03-02] MEDS ORDERED: predniSONE 10 MG TABLET PO ONE (07:15)
[2018-03-02] MEDS ORDERED: ALBUTEROL SULFATE 2.5 MG/3 ML NEBU ONE (07:17)
[2018-03-02] MEDS ORDERED: IPRATROPIUM BROMIDE 0.5 MG/2.5 ML NEBU ONE (07:17)
[2018-03-02] MEDS ORDERED: predniSONE 10 MG TABLET ONE (07:18)
[2018-03-02] MEDS ORDERED: predniSONE 50 MG TABLET ONE (07:18)
[2018-03-02] MEDS ORDERED: LORAZEPAM 0.5 MG TABLET ONE (07:43)
[2018-03-02] MEDS ORDERED: LORAZEPAM 0.5 MG TABLET PO ONE (07:45)
--- NOTE | 2018-03-02 08:03 | NUR ---
called dameon otto [address], trip number [id number]
[2018-03-02 08:50] VITALS: BP 164/87
--- NOTE | 2018-03-02 08:50 | NUR ---
[facility]ulanz at bedside
== END 2018-03-02 08:58 | disposition home or self-care (01) ==
LOC: ER 07:06
DX: J44.1 Chronic obstructive pulmonary disease with (acute) exacerbation (principal); I48.91 Unspecified atrial fibrillation; K21.9 Gastro-esophageal reflux disease without esophagitis; E11.9 Type 2 diabetes mellitus without complications; F17.200 Nicotine dependence, unspecified, uncomplicated; Z88.5 Allergy status to narcotic agent; Z88.8 Allergy status to other drugs, medicaments and biological substances
CPT/HCPCS: A4663; J3590; J7512

== ENCOUNTER 2018-03-15 13:54 | Emergency (ER) | payer MEDICARE ==
[~2018-03-15] VITALS: Ht 175.3 cm; Wt 68.0 kg
[2018-03-15] MEDS ORDERED: LORAZEPAM 2 MG/1 ML VIAL IM ONE (14:30)
[2018-03-15] MEDS ORDERED: ALBUTEROL SULFATE 2.5 MG/3 ML NEBU NEB ONE (14:30)
[2018-03-15] MEDS ORDERED: LORAZEPAM 2 MG/1 ML VIAL ONE (14:40)
--- NOTE | 2018-03-15 15:00 | NUR ---
PATIENT STATES SHE FEELS BETTER, LESS SHORT OF BREATH. SP02 97% ON RA. DC, RX AND FOLLOW UP INSTUCTIONS GIVEN AND EXPLAINED TO PATIENT WHO STATES SHE UNDERSTANDS ALL INSTRUCTIONS. PATIENT WARNED ABOUT DRIVING WHILE ON [place], FAMILY STATES THEY WILL DRIVE.
== END 2018-03-15 15:13 | disposition home or self-care (01) ==
LOC: ER 13:54
DX: J44.1 Chronic obstructive pulmonary disease with (acute) exacerbation (principal); I48.91 Unspecified atrial fibrillation; K21.9 Gastro-esophageal reflux disease without esophagitis; E11.9 Type 2 diabetes mellitus without complications; F17.200 Nicotine dependence, unspecified, uncomplicated; Z88.5 Allergy status to narcotic agent; Z88.8 Allergy status to other drugs, medicaments and biological substances
CPT/HCPCS: 93005; A4663; J2060

== ENCOUNTER 2018-03-23 16:29 | Emergency (ER) | payer MEDICARE ==
[~2018-03-23] VITALS: Ht 175.3 cm; Wt 68.0 kg
[~2018-03-23 16:29] MED LIST changes: -ALBU8.5H8 IH
--- NOTE | 2018-03-23 16:29 | NUR ---
Received patient alert, talking loudly on her phone, no shortness of breath seen, speaking in full sentences comfortably, pending MD evaluation
[2018-03-23 16:53] LABS: BASOPHILS % (AUTO) 0.3 % (0.0-2.0); EOSINOPHILS # (AUTO) 0.2 K/uL (0.0-0.7); EOSINOPHILS % (AUTO) 2.2 % (0.0-7.0); HEMATOCRIT 30.3 % (31.2-41.9); HEMOGLOBIN 10.1 g/dL (10.9-14.3); LYMPHOCYTES # (AUTO) 1.6 K/uL (20.0-40.0); LYMPHOCYTES % (AUTO) 19.1 % (20.5-51.5); MEAN CORPUSCULAR HEMOGLOBIN 30.3 uug (24.7-32.8); MEAN CORPUSCULAR HGB CONC 34 g/dL (32.3-35.6); MEAN CORPUSCULAR VOLUME 90.3 fL (75.5-95.3); MONOCYTES # (AUTO) 0.6 K/uL (2.0-10.0); MONOCYTES % (AUTO) 7.6 % (0.0-11.0); NEUTROPHILS % (AUTO) 70.8 % (38.5-71.5); PLATELET COUNT (AUTO) 277 K/uL (179-408); RED BLOOD CELL COUNT(AUTO) 3.35 MIL/uL (3.63-4.92); WHITE BLOOD COUNT (AUTO) 8.4 K/uL (3.8-11.8)
--- NOTE | 2018-03-23 17:01 | NUR ---
Patient ambulated to bathroom with minimal assist.
--- NOTE | 2018-03-23 17:03 | NUR ---
Patient is AOX4, refusing x-ray, aware
[2018-03-23] MEDS ORDERED: IPRATROPIUM BROMIDE 0.5 MG/2.5 ML NEBU ONE (17:05)
[2018-03-23 17:06] LABS: CARBON DIOXIDE 27 mmol/L (21-32); CHLORIDE 97 mmol/L (98-107); POTASSIUM 4.6 mmol/L (3.5-5.1)
[2018-03-23] MEDS ORDERED: ALBUTEROL SULFATE 2.5 MG/3 ML NEBU ONE (17:06)
[2018-03-23 17:07] LABS: CREATININE 0.7 mg/dL (0.6-1.3); GLUCOSE 102 mg/dL (74-106); UREA NITROGEN, BLOOD 16 mg/dL (7-18)
[2018-03-23 17:15] LABS: ALANINE AMINOTRANSFERASE 33 U/L (14-59); ALKALINE PHOSPHATASE 124 U/L (50-136); ASPARTATE AMINOTRANSFERASE 16 U/L (15-37); BILIRUBIN,DIRECT 0.1 mg/dL (0.0-0.2); BILIRUBIN,TOTAL 0.3 mg/dL (0.2-1.0); TOTAL PROTEIN, SERUM 7.6 g/dL (6.4-8.2)
[2018-03-23] MEDS ORDERED: OLANZAPINE 10 MG VIAL IM ONE ×2 (17:22→17:30)
--- NOTE | 2018-03-23 17:45 | NUR ---
Patient went to the bathroom again.
--- NOTE | 2018-03-23 18:01 | NUR ---
Patient ambulated to the bathroom third time, pending disposition
[2018-03-23 18:02] LABS: *BILIRUBIN,URIN NEGATIVE (NEGATIVE); *BLOOD, URINE NEGATIVE (NEGATIVE); *CLARITY,URINE CLEAR (CLEAR); *COLOR,URINE YELLOW (YELLOW); *KETONES,URINE NEGATIVE (NEGATIVE); *PROTEIN,URINE NEGATIVE (NEGATIVE); *UROBILINOGEN,URINE 0.2 E.U./dl (NORMAL); LEUKOCYTE ESTERASE ,URINE 1+ (NEGATIVE); NITRITE, URINE NEGATIVE (NEGATIVE); UGLUCOSE NEGATIVE (NEGATIVE)
[2018-03-23 18:03] LABS: BACTERIA,URINE FEW /HPF (NONE SEEN); RBC,URINE 0-3 /HPF (0-3); SQUAMOUS EPITHELIAL CELL,UR FEW /HPF (NONE SEEN)
[2018-03-23] MEDS ORDERED: HALOPERIDOL LACTATE 5 MG/1 ML VIAL ONE ×2 (18:12→19:00)
[2018-03-23] MEDS ORDERED: HALOPERIDOL LACTATE 5 MG/1 ML VIAL IM ONE ×2 (18:15→19:00)
--- NOTE | 2018-03-23 18:31 | NUR ---
Bedside commode provided. 1:1 sitter requested.
--- NOTE | 2018-03-23 18:47 | NUR ---
Patient is medically cleared, pending psych evaluation@this time.
[2018-03-23] MEDS ORDERED: LORAZEPAM 2 MG/1 ML VIAL ONE (19:00)
[2018-03-23] MEDS ORDERED: HALOPERIDOL LACTATE 5 MG/1 ML VIAL IV ONE (19:00)
[2018-03-23] MEDS ORDERED: LORAZEPAM 2 MG/1 ML VIAL IM ONE (19:00)
[2018-03-23] MEDS ORDERED: LORAZEPAM 2 MG/1 ML VIAL IV ONE (19:00)
--- NOTE | 2018-03-23 19:31 | NUR ---
RECEIVED SHIFT REPORT FROM AIDEE GARCIA. RECEIVED PT IN 2-POINT RESTRAINT (BILATERAL WRISTS) IN BED. PT SCREAMING INTERMITTENTLY. R WRIST RESTRAINT READJUSTED, WATER PROVIDED. PT DENIES ANY DISCOMFORT AT THIS TIME. AWAITING FOR CRISIS VENEER DRIER FEEDER, MECHE HOSKINS, TO ARRIVE. Addendum: 03/23/18 at 1937 by JULIAN 1:1 SITTER AT BEDSIDE.
[2018-03-23 20:06] LABS: ETHANOL < 3 MG/DL (0-0)
[2018-03-23 20:14] LABS: *AMPHETAMINE, URINE NEGATIVE (NEGATIVE); *BARBITURATE, URINE NEGATIVE (NEGATIVE); *CANNABINOID, URINE NEGATIVE (NEGATIVE); *COCCAINE, URINE NEGATIVE (NEGATIVE); *OPIATE, URINE NEGATIVE (NEGATIVE); *PHENCYCLIDINE SCREEN,URINE NEGATIVE (NEGATIVE)
--- NOTE | 2018-03-23 20:38 | NUR ---
ZACK, CRISIS WELL SERVICE FLOORPERSON, AT BEDSIDE W/ PT.
[2018-03-23 20:43] LABS: ACETAMINOPHEN < 2.0 ug/mL (10-30)
--- NOTE | 2018-03-23 21:18 | NUR ---
PT IS MEDICALLY CLEARED, PT CLEARED BY PSYCH UTILITY SYSTEMS REPAIRER OPERATOR, ZACK HOSKINS. SPOKE W/ PT'S BOARDING CARE ([facility]) RE PT'S D/C FROM ER BACK TO THEIR FACILITY. RECEIVED A CALL BACK FROM HOME RESTORATION SERVICE CLEANER OF BOARDING CARE, SCREAMING "WE ARE NOT GOING TO TAKE HER BACK! WE CANNOT ACCEPT HER BACK HERE". INFORMED THE STAFF THAT PT IS MEDICALLY AND PSYCHIATRICALLY CLEARED TO RETURN TO HER PLACE OF RESIDENCE. RECEIVED CALL FROM PT'S PRIMARY PSYCH MD, DR. ESQUIVEL. INFORMED DR. ESQUIVEL THAT THERE IS NO REASON FOR PT TO BE ADMITTED TO THIS HOSPITAL AND THAT PT WILL BE RETURNED TO [facility]. SPOKE W/ PT'S GRANDSON, LIDYA JETER, ON THE PHONE RE PT'S RETURN TO [facility]. LIDYA STATES THAT HE RECEIVED A CALL FROM [facility] THAT THEY WILL NOT BE TAKING THE PT BACK INTO THEIR FACILITY. I INFORMED LIDYA JETER THAT THE FACILITY CANNOT REFUSE TO ACCEPT CARE OF PT IF THEY ARE DESIGNATED HER PLACE OF RESIDENCE AND PROVIDER OF CARE. ZOYA, PRIVATE AMBULANCE, CALLED TO [employer] EMBOSSING PRESS OPERATOR PT FOR RETURN TO [facility]. ETA 30 MIN.
--- NOTE | 2018-03-23 21:23 | NUR ---
BIANKA RAY TO TRANSPORT PT BACK TO [address] [place] [address] [address] [place] [address]. ETA 30 MIN. TRIP #[id number]
--- NOTE | 2018-03-23 21:25 | NUR ---
BILATERAL WRIST RESTRAINTS HAVE BEEN OFF AND PT REMAINS CALM AND COOPERATIVE. 1:1 SITTER AT BEDSIDE. VSS. PT SELF-AMBULATED TO USE BEDSIDE COMMODE.
--- NOTE | 2018-03-23 21:38 | NUR ---
RECEIVED ANOTHER CALL FROM THE SEWING MACHINE MECHANIC [facility] BOTH ARE FRANTICALLY SCREAMING AND SHOUTING OUT THAT THEY "CANNOT ACCEPT THE PT" AND THAT THEY WILL NOT BE ACCEPTING THE PT. BOTH STATE THAT "OTHER RESIDENTS AT OUR BOARDING CARE ARE COMPLAINING THAT SHE'S LOUD AND DISRUPTIVE, SO WE CANNOT ACCEPT HER HERE". I INFORMED [facility] AGAIN THAT THE PT IS MEDICALLY AND PSYCHIATRICALLY CLEARED AND IS IN NO NEED TO BE IN AN ACUTE CARE HOSPITAL. THONY STATED "YOU ARE A HOSPITAL. WE DO NOT WANT HER. YOU KEEP HER THERE IN THE EMERGENCY ROOM". I INFORMED THEM YET AGAIN, THAT THE PT IS MEDICALLY AND PSYCHIATRICALLY CLEARED AND HAVE NO NEED TO REMAIN IN AN ACUTE CARE SETTING. I ALSO INFORMED THEM THAT IF THEY CANNOT OR DO NOT WANT HER IN THEIR BOARDING CARE ANY LONGER, THEY CAN CONTACT THEIR FIELD OPERATIONS MANAGER TO FIND THE PT A DIFFERENT [employer] COMMUNICATIONS INSTRUCTOR CARE FACILITY AND THAT THEY CANNOT DUMP THE PT IN A HOSPITAL ER AND ABANDON THE PT. WHILE ON HOLD FOR THE [employer] SALES REPRESENTATIVE, [employer] HUNG UP. TEXTILE COATING MACHINE OPERATOR, RAFIQ, INFORMED AND AWARE. ER MD, DR. SALES, CONFIRMS THAT THE PT IS MEDICALLY AND PSYCHIATRICALLY CLEARED AND THERE IS NO NEED FOR THE PT TO REMAIN IN THE HOSIPTAL. AWAITING ARRIVAL OF AMBULANCE FOR PICK-UP.
--- NOTE | 2018-03-23 22:05 | NUR ---
Patient discharged to home in stable conditon. Written and verbal after care instructions given. Patient verbalizes understanding of instructions. PT D/C TO [facility] VIA [facility] 111, ESCORTED BY 2 EMT'S. ALL BELONGINGS W/ PT. PT IN STABLE CONDITION. PT SELF-AMBULATED TO [facility] WITHOUT DIFFICULTY. PT DENIES PAIN, C/P, SOB, N/V/D, DIZZINESS, HEADACHE, SI, HI. VSS.
[2018-03-23 22:06] VITALS: BP 156/90
--- NOTE | 2018-03-23 22:41 | NUR ---
CORRECTION: PT'S CURRENT BOARDING CARE - [facility]. [address] [place] [address]. [phone] [facility] WAS THE PT'S PREVIOUS RESIDENCE. TYLOR & CHARLOTTE REFERRED TO IN THIS CHART ARE OWNERS OF [facility].
== END 2018-03-23 22:07 | disposition home or self-care (01) ==
LOC: ER 16:32
DX: R45.1 Restlessness and agitation (principal); I48.91 Unspecified atrial fibrillation; J45.909 Unspecified asthma, uncomplicated; K21.9 Gastro-esophageal reflux disease without esophagitis; E11.9 Type 2 diabetes mellitus without complications; I50.9 Heart failure, unspecified; F17.200 Nicotine dependence, unspecified, uncomplicated; Z88.5 Allergy status to narcotic agent; Z88.8 Allergy status to other drugs, medicaments and biological substances; Z79.84 Long term (current) use of oral hypoglycemic drugs
CPT/HCPCS: 36415; 70030-TC; 71045; 80307; 85025; 85730; 93005; A4663; G0480; G0480-TC; J1630; J2060; J2358; J3590